=== PATIENT | male | born 1950 ===

== ENCOUNTER 2019-03-14 14:11 | Inpatient (IN) | payer MEDICARE, OTHER ==
--- NOTE | 2019-03-14 14:45 | ED ---
Abdominal Pain HPI - General Chief Complaint: Abdominal Pain Stated Complaint: bowel obstruction Time Seen by Provider: 03/14/19 14:13 Source: patient, RN notes reviewed, old records reviewed Mode of arrival: EMS Limitations: no limitations - History of Present Illness Initial Comments: This is a 60-year-old male the ER for evaluation presented for evaluation regarding abdominal pain. Patient is accepted in transfer secondary to bowel pain with found small bowel suction. Patient still having abdominal pain currently Feels nausea vomiting. MD Complaint: abdominal pain -: days(s) Location: diffuse, epigastric, suprapubic Radiation: epigastric Migration to: no migration Severity: moderate Severity scale (1-10): 4 Quality: cramping, aching Consistency: constant Improves With: nothing Worsens With: nothing Associated Symptoms: nausea - Related Data Home Medications Medication Instructions Recorded Confirmed ARIPiprazole [Abilify] 15 mg PO DAILY@59904/30/16 03/14/19 Acetaminophen [Tylenol] 500 mg PO Q4-6H PRN 04/30/16 03/14/19 Aspirin EC [Ecotrin Low Dose] 81 mg PO DAILY@59904/30/16 03/14/19 Baclofen [Lioresal] 10 mg PO HS@209904/30/16 03/14/19 Doxazosin Mesylate 2 mg PO TID@0600,1300,209904/30/16 03/14/19 Lisinopril 40 mg PO DAILY@59904/30/16 03/14/19 Magnesium Hydroxide [Milk of 1,200 mg PO Q48H PRN 04/30/16 03/14/19 Magnesia] Phenytoin Sodium Extended 200 mg PO BID@0600,209904/30/16 03/14/19 [Dilantin] Sertraline HCl [Zoloft] 100 mg PO DAILY@209904/30/16 03/14/19 Tamsulosin HCl [Flomax] 0.4 mg PO DAILY@59904/30/16 03/14/19 ALPRAZolam [Xanax] 0.25 mg PO TID@0600,1300,209903/14/19 03/14/19 Bisacodyl 10 mg RECTAL DAILY PRN 03/14/19 03/14/19 Bisacodyl [Dulcolax] 10 mg PO Q48H PRN 03/14/19 03/14/19 Fluticasone Nasal [place] [Flonase 1 spray EA NOSTRIL DAILY@0600 03/14/19 03/14/19 Nasal [place]] Furosemide [Lasix] 20 mg PO DAILY@1300 03/14/19 03/14/19 Na Phos,M-B/Na Phos,Di-Ba [Fleet 133 ml RECTAL DAILY PRN 03/14/19 03/14/19 Adult] Omeprazole 20 mg PO DAILY@0600 03/14/19 03/14/19 Potassium Chloride ER [K-Dur 10] 20 meq PO BID@0600,199903/14/19 03/14/19 Sertraline [Zoloft] 50 mg PO DAILY@2100 03/14/19 03/14/19 Vitamin B Complex/Folic Acid 0.4 mg PO DAILY@0600 03/14/19 03/14/19 [B-Complex Tablet] Previous Rx's Medication Instructions Recorded Phenytoin Sodium Extended 100 mg PO DAILY@1300 cap 05/05/16 [Dilantin] Allergies Allergy/AdvReac Type Severity Reaction Status Date / Time No Known Allergies Allergy Verified 03/14/19 14:29 Review of Systems ROS Statement: Those systems with pertinent positive or pertinent negative responses have been documented in the HPI. ROS Other: All systems not noted in ROS Statement are negative. Past Medical History Past Medical History: COPD, CVA/TIA Additional Past Medical History / Comment(s): Patient also has seizure disorder, bipolar disorder, hypertension, COPD, multiple CVAs in the past to the point where the patient is essentially bedridden at this point. History of Any Multi-Drug Resistant Organisms: None Reported Past Surgical History: No Surgical Hx Reported Past Anesthesia/Blood Transfusion Reactions: No Reported Reaction Past Psychological History: Bipolar Smoking Status: Never smoker Past Alcohol Use History: Abuse Past Drug Use History: None Reported General Exam Limitations: no limitations General appearance: alert, in no apparent distress Head exam: Present: atraumatic, normocephalic, normal inspection Eye exam: Present: normal appearance, PERRL, EOMI. Absent: scleral icterus, conjunctival injection, periorbital swelling ENT exam: Present: normal exam, mucous membranes moist Neck exam: Present: normal inspection. Absent: tenderness, meningismus, lymphadenopathy Respiratory exam: Present: normal lung sounds bilaterally. Absent: respiratory distress, wheezes, rales, rhonchi, stridor Cardiovascular Exam: Present: regular rate, normal rhythm, normal heart sounds. Absent: systolic murmur, diastolic murmur, rubs, gallop, clicks GI/Abdominal exam: Present: soft, normal bowel sounds. Absent: distended, tenderness, guarding, rebound, rigid Extremities exam: Present: normal inspection, full ROM, normal capillary refill. Absent: tenderness, pedal edema, joint swelling, calf tenderness Back exam: Present: normal inspection Neurological exam: Present: alert, oriented X3, CN II-XII intact Psychiatric exam: Present: normal affect, normal mood Skin exam: Present: warm, dry, intact, normal color. Absent: rash Course Vital Signs 03/14/19 14:22 Temperature 98.4 F Pulse Rate 84 Respiratory 18 Rate Blood Pressure 151/98 O2 Sat by Pulse 99 Oximetry - Reevaluation(s) Reevaluation #1: 03/14/19 15:36 Medical record and transfer paperwork are reviewed Medical Decision Making - Medical Decision Making 60 female the ER for reevaluation of bowel pain nausea vomiting patient be admitted for small bowel obstruction surgical evaluation Disposition Clinical Impression: Dilated bowel, Abdominal pain, Small bowel obstruction Disposition: ADMITTED IP TO THIS HOSP Condition: Good Is patient prescribed a controlled substance at d/c from ED?: No Referrals: Kiran Travis MD [Primary Care Provider] - 1-2 days
[2019-03-14] MEDS ORDERED: SODIUM CHLORIDE 0.9% 1,000 ML IV ONE (15:34)
[2019-03-14] MEDS ORDERED: ONDANSETRON 4 MG/2 ML VIAL IVP STA (15:35)
[2019-03-14] MEDS ORDERED: PANTOPRAZOLE 40 MG/10 ML VIAL IVP STA (15:35)
[2019-03-14] MEDS ORDERED: MORPHINE SULFATE 4 MG/ML SYRINGE IVP STA (15:35)
[2019-03-14] MEDS ORDERED: MORPHINE SULFATE 4 MG/ML SYRINGE IVP PRN (15:35)
[2019-03-14 16:50] VITALS: BMI 34.9
--- NOTE | 2019-03-14 19:51 | XR ---
EXAMINATION TYPE: XR chest 1V portable DATE OF EXAM: 03/14/2019 CLINICAL HISTORY: Difficulty breathing and CHF progress study. TECHNIQUE: Single AP portable upright view of the chest is obtained. COMPARISON: Chest x-ray from May 01, 2016 FINDINGS: There are low lung volumes with bibasilar linear scarring and/or atelectasis. Cardiomegaly is redemonstrated. No new focal airspace opacity, pleural effusion, or pneumothorax. Osseous structu res are demineralized. IMPRESSION: Overall stable findings, cardiomegaly with low lung volumes and patchy bibasilar linear scarring and/or atelectasis are all redemonstrated.
[2019-03-14] MEDS: SERTRALINE 50 MG TAB PO SCH (19:58)
[2019-03-14] MEDS: DOXAZOSIN 2 MG TAB PO SCH (19:59)
[2019-03-14] MEDS: PHENYTOIN SODIUM EXTENDED 100 MG CAP PO SCH (19:59)
[2019-03-14] MEDS: BACLOFEN 10 MG TAB PO SCH (19:59)
[2019-03-14] MEDS: SODIUM CHLORIDE 0.9% 1,000 ML IV SCH (20:03)
--- NOTE | 2019-03-14 20:41 | HP ---
HISTORY AND PHYSICAL DATE OF SERVICE: 03/14/2019 CHIEF COMPLAINT: Abdominal pain and distention. HISTORY OF PRESENT ILLNESS: This 68-year-old gentleman with a past medical history of multiple medical problems including COPD, CVA, TIA, seizure disorder, bipolar, hypertension, COPD, multiple CVAs in the past being followed by Dr. Kiran Travis in the outpatient setting, is a resident of [facility] in [place]. The patient presented to [facility] with complaints of abdominal distention and pain and evaluation showed evidence of bowel obstruction with some suspicion of volvulus. The patient was referred to [facility] and admitted for further evaluation and treatment. There is no history of fever, rigors. No headache, loss of consciousness, seizures. Patient also had some feeling of nausea also and cramping as well. PAST MEDICAL HISTORY: History of CVA, TIA, COPD, multiple CVAs, hypertension, COPD. MEDICATIONS: Home medications are: 1. Lioresal 10 mg q.h.s. 2. Tylenol 500 mg q.4h p.r.n. 3. Milk of magnesia. 4. Fleet's enema 133 rectally daily p.r.n. 5. Dulcolax 10 mg Q48 p.r.n. 6. Bisacodyl 10 mg daily p.r.n. 7. K-Dur 20 mEq p.o. b.i.d. 8. Doxylate 2 mg p.o. t.i.d. 9. Xanax 2.5 mg t.i.d. 10.Dilantin 200 mg p.o. b.i.d. 11.Zoloft 50 mg p.o. daily. 12.Zoloft 100 mg p.o. daily. 13.Dilantin 100 mg p.o. daily. 14.Omeprazole 20 mg p.o. daily. 15.Lisinopril 40 mg p.o. daily. 16.Lasix 20 mg p.o. daily. 17.Flonase 1 spray daily. 18.Multivitamin daily. 19.Flomax 0.4 daily. 20.Aspirin 81 mg p.o. daily. 21.Abilify 50 mg p.o. daily. ALLERGIES: None. FAMILY HISTORY: No history of any heart disease or strokes in the family. SOCIAL HISTORY: History of alcohol abuse, no history of smoking. REVIEW OF SYSTEMS: ENT diminished vision. Diminished hearing. CARDIOVASCULAR: No angina. Otherwise as mentioned earlier. RESPIRATORY: As mentioned earlier. GI no nausea or vomiting. no dysuria. CENTRAL NERVOUS SYSTEM: No numbness, weakness. ALLERGY/IMMUNOLOGY: No asthma or hayfever. MUSCULOSKELETAL as mentioned earlier. HEMATOLOGY/ONCOLOGY: No history of anemia. ENDOCRINE: No history of diabetes or hypothyroidism. CONSTITUTIONAL: As mentioned earlier. DERMATOLOGY: Negative. RHEUMATOLOGY: Negative. PSYCHIATRY as mentioned earlier. PHYSICAL EXAMINATION: Alert and oriented times three. Pulse is 84. Blood pressure 150/90, respiration 18, temperature 98.4, pulse ox 98% on room air. HEENT: Conjunctivae normal. NECK: No jugular venous distention. CARDIOVASCULAR: S1, S2 muffled. RESPIRATORY: Breath sounds diminished in the bases. A few scattered rhonchi and crackles. ABDOMEN: Soft. Mild diffuse distention present. Mild diffuse tenderness. No guarding. No rigidity. No mass palpable. Bowel sounds diminished. No ascites. No dullness in the flank mostly present on percussion. LEGS: No edema. No swelling. NERVOUS SYSTEM as mentioned earlier. Moves all 4 limbs. No focal motor or sensory deficits. Lymphatics: No lymph nodes palpable in the neck, axillae or groin. SKIN: No ulcers, no rashes or bleeding. JOINTS: No active deforming arthropathy. LABS: Reviewed. CT scan report reviewed. ASSESSMENT: 1. Abdominal distention, possible bowel obstruction with possible rule out volvulus. 2. Chronic obstructive pulmonary disease history. 3. History of multiple cerebrovascular accidents. 4. History of seizure disorder. 5. History of bipolar. 6. Hypertension. 7. Remote history of ETOH. RECOMMENDATIONS AND DISCUSSION: In this 68-year-old gentleman who presented with multiple complex medical issues, we will monitor the patient closely, continue the current medications, management and symptomatic treatment. I recommend resume the home medication including antihypertensive medications and Lasix. Keep the patient n.p.o. except medications. Surgical evaluation. Guarded prognosis because of the multiple complex medical issues. DVT prophylaxis, incentive spirometry. The patient has multiple medical issues, but currently patient is medically stable and patient will be cleared for surgery in case the surgery proceeded to decide so. A copy of this dictation being forwarded to Dr. Kiran Travis who is the primary physician. MMODL / IJN: [id number] /
[2019-03-14] MEDS ORDERED: SERTRALINE 100 MG TAB PO SCH (21:00)
[2019-03-15] MEDS: PHENYTOIN SODIUM EXTENDED 100 MG CAP PO SCH ×3 (05:17→22:11)
[2019-03-15] MEDS: DOXAZOSIN 2 MG TAB PO SCH ×3 (05:17→22:11)
[2019-03-15] MEDS: ARIPiprazole 15 MG TAB PO SCH (05:18)
[2019-03-15] MEDS: FLUTICASONE 50MCG/SPRAY NASAL 16GM EA NOSTRIL SCH (05:18)
[2019-03-15] MEDS: TAMSULOSIN 0.4 MG CAP.ER.24H PO SCH (05:19)
[2019-03-15] MEDS: LISINOPRIL 20 MG TAB PO SCH (05:19)
[2019-03-15] MEDS: PANTOPRAZOLE 40 MG/10 ML VIAL IVP SCH (07:50)
[2019-03-15] MEDS ORDERED: ENOXAPARIN 40 MG/0.4 ML SYRINGE SQ SCH (09:00)
[2019-03-15 11:20] LABS: Basophils % (A) 1 %; Eosinophils # (A) 0.1 k/uL (0-0.7); Eosinophils % (A) 3 %; HCT 39.6 % (39.0-53.0); HGB 12.6 gm/dL (13.0-17.5); Lymphocytes # (A) 1.2 k/uL (1.0-4.8); Lymphocytes % (A) 28 %; MCH 29.9 pg (25.0-35.0); MCHC 31.8 g/dL (31.0-37.0); MCV 93.8 fL (80.0-100.0); Mean Platelet Volume 6.9; Monocytes # (A) 0.4 k/uL (0-1.0); Monocytes % (A) 9 %; Neutrophils # (A) 2.4 k/uL (1.3-7.7); Neutrophils % (A) 57 %; Platelet Count 239 k/uL (150-450); RBC 4.22 m/uL (4.30-5.90); RDW 14.2 % (11.5-15.5); WBC 4.2 k/uL (3.8-10.6)
[2019-03-15 11:23] LABS: African American GFR (CKD) >90 (>60 ml/min/1.73 sqM); Anion Gap 9 mmol/L; Blood Urea Nitrogen 13 mg/dL (9-20); Calcium 8.4 mg/dL (8.4-10.2); Carbon Dioxide 21 mmol/L (22-30); Chloride 111 mmol/L (98-107); Glucose 71 mg/dL (74-99); Non-African American GFR(CKD) >90 (>60 ml/min/1.73 sqM); Potassium 3.4 mmol/L (3.5-5.1); Sodium 141 mmol/L (137-145)
--- NOTE | 2019-03-15 12:22 | XR ---
EXAMINATION TYPE: XR abdomen 2V DATE OF EXAM: 03/15/2019 12:14 PM CLINICAL HISTORY: Abdominal pain and sigmoid folds are less reported on an outside CT. TECHNIQUE: Upright and supine images of the abdomen were obtained. COMPARISON: None. FINDINGS: There is marked dilatation of the colon, appearing as the sigmoid colon measuring up to 24 cm placing this patient at risk for perforation. There is folding of the colon with apex oriented tow ards the right upper quadrant again most compatible with sigmoid volvulus as reported on an outside C T. Air is seen within the dilated remainder of the colon as well as mottled stool in the right hemico tino and transverse colon. Moderate degenerative changes of the spine. Lung bases are suboptimally vie wed. Pneumoperitoneum is suboptimally evaluated however not grossly present on the upright exam. IMPRESSION: Folding of the sigmoid colon with marked dilatation showing up to 24 cm. [place] is oriented to the right upper quadrant and findings are most radiographically compatible with sigmoid volvulus, concordant with the reported outside CT. Degree of dilatation makes this patient at risk for perfora tion and therefore surgical consultation is recommended and barium enema is not advised.
[2019-03-15] MEDS: SODIUM CHLORIDE 0.9% 1,000 ML IV SCH (12:43)
--- NOTE | 2019-03-15 13:23 | P.GSCN ---
History of Present Illness Consult date: 03/15/19 Reason for Consult: obstruction Requesting physician: Beto Riley History of present illness: CHIEF COMPLAINT: obstruction HISTORY OF PRESENT ILLNESS: 68-year-old male who is transferred to [facility] from [facility]. patient reports he was initially sent to the hospital secondary to back pain. He also reports having some nausea and vomiting yesterday which has resolved. Computed tomography scan completed at outside facility reveals colonic dilatation and copious stool in association with sigmoid volvulus. Patient examined at the bedside. Patient is not complaining of any abdominal pain at this time. He denies nausea or vomiting. PAST MEDICAL HISTORY: See list. PAST SURGICAL HISTORY: See list. SOCIAL HISTORY: No illicit drug use. REVIEW OF SYSTEMS: CONSTITUTIONAL: Denies fever or chills. HEENT: Denies blurred vision, vision changes, or eye pain. Denies hemoptysis CARDIOVASCULAR: Denies chest pain or pressure. RESPIRATORY: No shortness of breath. GASTROINTESTINAL: Refer to HPI for pertinent findings HEMATOLOGIC: Denies bleeding disorders. GENITOURINARY: Denies any blood in urine. SKIN: Denies pruitis. Denies rash. PHYSICAL EXAM: VITAL SIGNS: Reviewed. GENERAL: Well-developed in no acute distress. HEENT: No sclera icterus. Extraocular movements grossly intact. Moist buccal mucosa. Head is atraumatic, normocephalic. ABDOMEN: Obese. Nontender. Firmness to palpation on left side of abdomen. Right side soft. NEUROLOGIC: Alert and oriented. Cranial nerves II through XII grossly intact. LABORATORY DATA: laboratory data complete this morning reveals white count 4.2. Hemoglobin 12.6. Sodium 141. Potassium 3.4. BUN 13. Creatinine 0.67. Lactic acid 0.7. IMAGING: Two-view abdominal x-ray completed this morning reveals full denies the sigmoid colon with marked dilatation showing up to 24 cm. [place] is oriented to the right upper quadrant and findings are most compatible with sigmoid volvulus. ASSESSMENT: 1. Sigmoid volvulus PLAN: NPO. Increase IV fluids to 100cc/hr. Monitor labs. Patient to undergo sigmoid colectomy with possible colostomy today with Dr. Martinez. Patient medically cleared for surgery by Dr. Davis yesterday per his dictation Nurse practitioner note has been reviewed by physician. Signing provider agrees with the documented findings, assessment, and plan of care. Past Medical History Past Medical History: COPD, CVA/TIA Additional Past Medical History / Comment(s): Patient also has seizure disorder, bipolar disorder, hypertension, COPD, multiple CVAs in the past to the point where the patient is essentially bedridden at this point. History of Any Multi-Drug Resistant Organisms: None Reported Past Surgical History: No Surgical Hx Reported Past Anesthesia/Blood Transfusion Reactions: No Reported Reaction Past Psychological History: Bipolar Smoking Status: Never smoker Past Alcohol Use History: Abuse Additional Past Alcohol Use History / Comment(s): pt states he used to be an alcoholic and his last drink was years ago Past Drug Use History: None Reported Medications and Allergies Home Medications Medication Instructions Recorded Confirmed Type ARIPiprazole [Abilify] 15 mg PO DAILY@59904/30/16 03/14/19 History Acetaminophen [Tylenol] 500 mg PO Q4-6H PRN 04/30/16 03/14/19 History Aspirin EC [Ecotrin Low Dose] 81 mg PO DAILY@59904/30/16 03/14/19 History Baclofen [Lioresal] 10 mg PO HS@209904/30/16 03/14/19 History Doxazosin Mesylate 2 mg PO TID@0600,1300,209904/30/16 03/14/19 History Lisinopril 40 mg PO DAILY@59904/30/16 03/14/19 History Magnesium Hydroxide [Milk of 1,200 mg PO Q48H PRN 04/30/16 03/14/19 History Magnesia] Phenytoin Sodium Extended 200 mg PO BID@0600,209904/30/16 03/14/19 History [Dilantin] Sertraline HCl [Zoloft] 100 mg PO DAILY@209904/30/16 03/14/19 History Tamsulosin HCl [Flomax] 0.4 mg PO DAILY@0600 04/30/16 03/14/19 History Phenytoin Sodium Extended 100 mg PO DAILY@1300 cap 05/05/16 03/14/19 Rx [Dilantin] ALPRAZolam [Xanax] 0.25 mg PO TID@0600,1300,209903/14/19 03/14/19 History Bisacodyl 10 mg RECTAL DAILY PRN 03/14/19 03/14/19 History Bisacodyl [Dulcolax] 10 mg PO Q48H PRN 03/14/19 03/14/19 History Fluticasone Nasal [place] [Flonase 1 spray EA NOSTRIL DAILY@0600 03/14/19 03/14/19 History Nasal [place]] Furosemide [Lasix] 20 mg PO DAILY@1300 03/14/19 03/14/19 History Na Phos,M-B/Na Phos,Di-Ba [Fleet 133 ml RECTAL DAILY PRN 03/14/19 03/14/19 History Adult] Omeprazole 20 mg PO DAILY@0600 03/14/19 03/14/19 History Potassium Chloride ER [K-Dur 10] 20 meq PO BID@0600,199903/14/19 03/14/19 History Sertraline [Zoloft] 50 mg PO DAILY@2100 03/14/19 03/14/19 History Vitamin B Complex/Folic Acid 0.4 mg PO DAILY@0600 03/14/19 03/14/19 History [B-Complex Tablet] Allergies Allergy/AdvReac Type Severity Reaction Status Date / Time No Known Allergies Allergy Verified 03/14/19 14:29 Surgical - Exam Vital Signs Temp Pulse Resp BP Pulse Ox 98.4 F 84 18 151/98 99 03/14/19 14:22 03/14/19 14:22 03/14/19 14:22 03/14/19 14:22 03/14/19 14:22 Results - Labs 03/15/19 10:38 03/15/19 10:38 Abnormal Lab Results - Last 24 Hours (Table) 03/15/19 03/15/19 Range/Units 10:38 10:38 RBC 4.22 L (4.30-5.90) m/uL Hgb 12.6 L (13.0-17.5) gm/dL Potassium 3.4 L (3.5-5.1) mmol/L Chloride 111 H (98-107) mmol/L Carbon Dioxide 21 L (22-30) mmol/L Glucose 71 L (74-99) mg/dL Diabetes panel 03/15/19 Range/Units 10:38 Sodium 141 (137-145) mmol/L Potassium 3.4 L (3.5-5.1) mmol/L Chloride 111 H (98-107) mmol/L Carbon Dioxide 21 L (22-30) mmol/L BUN 13 (9-20) mg/dL Creatinine 0.67 (0.66-1.25) mg/dL Glucose 71 L (74-99) mg/dL Calcium 8.4 (8.4-10.2) mg/dL Calcium panel 03/15/19 Range/Units 10:38 Calcium 8.4 (8.4-10.2) mg/dL Pituitary panel 03/15/19 Range/Units 10:38 Sodium 141 (137-145) mmol/L Potassium 3.4 L (3.5-5.1) mmol/L Chloride 111 H (98-107) mmol/L Carbon Dioxide 21 L (22-30) mmol/L BUN 13 (9-20) mg/dL Creatinine 0.67 (0.66-1.25) mg/dL Glucose 71 L (74-99) mg/dL Calcium 8.4 (8.4-10.2) mg/dL Adrenal panel 03/15/19 Range/Units 10:38 Sodium 141 (137-145) mmol/L Potassium 3.4 L (3.5-5.1) mmol/L Chloride 111 H (98-107) mmol/L Carbon Dioxide 21 L (22-30) mmol/L BUN 13 (9-20) mg/dL Creatinine 0.67 (0.66-1.25) mg/dL Glucose 71 L (74-99) mg/dL Calcium 8.4 (8.4-10.2) mg/dL
[2019-03-15] MEDS: FUROSEMIDE 20 MG TAB PO SCH (14:03)
[2019-03-15] MEDS: 0.9% NACL WITH KCL 40 MEQ/L 1,000 ML IV SCH (17:22)
[2019-03-15] MEDS ORDERED: IOPAMIDOL CONTRAST (ORAL USE) VIAL PO PRN (17:44)
--- NOTE | 2019-03-15 19:03 | PN ---
PROGRESS NOTE DATE OF SERVICE: 03/15/2019. This 68-year-old gentleman who was admitted with abdominal distention had suspected bowel obstruction. Patient had a CT scan of the abdomen elsewhere. The patient was complaining of abdominal pain, also. Abdominal x-ray has been done. Surgery has seen the patient and recommended sigmoid colectomy for possible sigmoid volvulus. The patient is being closely monitored. Past medical history reviewed. REVIEW OF SYSTEMS: CARDIOVASCULAR SYSTEM: No angina, palpitations. RESPIRATORY SYSTEM: As mentioned earlier. GI: As mentioned earlier. : No dysuria or retention. NERVOUS SYSTEM: No numbness, weakness. CURRENT MEDICATIONS: Reviewed. They include: 1. Abilify 15 mg p.o. daily. 2. Lioresal 10 mg at bedtime. 3. Cardura 2 mg p.o. daily. 4. Lovenox 40 mg subcutaneously daily. 5. Flonase. 6. Lasix 20 mg daily. 7. Dilaudid 0.5 mg q.3 p.r.n. 8. Zestril 40 mg p.o. daily. 9. Zofran 4 mg q.6 p.r.n. 10.Protonix 40 mg IV daily. 11.Dilantin 200 mg p.o. b.i.d. 12.Zoloft 150 mg p.o. daily. 13.Flomax 0.4 daily. PHYSICAL EXAMINATION: Patient alert and oriented x3. Pulse 85, blood pressure 150/90, respiration 16, temperature 98.2, pulse ox 96% on room air. HEENT: Conjunctivae normal NECK: No jugular venous distention. No carotid bruit. No lymph node enlargement. CARDIOVASCULAR SYSTEM: S1, S2 muffled. No S3. No S4. RESPIRATORY SYSTEM: Breath sounds diminished at the bases. No rhonchi. No crackles. ABDOMEN: Soft. Mild diffuse distention. Mild diffuse tenderness also present. Bowel sounds diminished. LEGS: No edema. No swelling. NERVOUS SYSTEM: No focal deficit. LABS: WBC 4.2, hemoglobin 12.6, sodium 140, potassium 3.4. ASSESSMENT: 1. Abdominal pain with acute bowel obstruction secondary to sigmoid volvulus. 2. Hypokalemia. 3. Chronic obstructive pulmonary disease history. 4. History of multiple cerebrovascular accidents. 5. History of seizure disorder. 6. History of bipolar. 7. Hypertension. 8. Remote history of ETOH. RECOMMENDATIONS AND DISCUSSION: I recommend to continue current medications, continue with the monitoring, symptomatic treatment. Will optimize the bronchodilator treatment. Supplement potassium. DVT prophylaxis. Incentive spirometry. Pain medications. Follow closely with Surgery. Dr. Martinez is planning surgery probably tomorrow. Further recommendations to follow. LUDWIGL / CARISAN: [id number] / MTDD
[2019-03-15] MEDS: BACLOFEN 10 MG TAB PO SCH (22:10)
[2019-03-15] MEDS: SERTRALINE 50 MG TAB PO SCH (22:11)
[2019-03-15] MEDS: HEPARIN SODIUM,PORCINE 5,000 UNIT/ML 1 ML VIAL SQ SCH (22:13)
--- NOTE | 2019-03-15 23:43 | CT ---
EXAMINATION TYPE: CT abdomen pelvis wo con DATE OF EXAM: 03/15/2019 COMPARISON: Radiographs 03/15/2019 HISTORY: Sigmoid volvulus, colon obstruction. CT DLP: 1296 mGycm. Automated exposure control for dose reduction was used. TECHNIQUE: Helical acquisition of images was performed from the lung bases through the pelvis. FINDINGS: LUNG BASES: No acute findings. There is mild cardiomegaly and prominent left and right coronary calci fications. 5 cm hiatal hernia noted. LIVER/GB: No significant abnormality is appreciated. PANCREAS: No significant abnormality is seen. SPLEEN: No significant abnormality is seen. ADRENALS: No significant abnormality is seen. KIDNEYS: No significant abnormality is seen. FREE AIR: No free air is visualized; no fluid. RETROPERITONEAL ADENOPATHY: None visualized REPRODUCTIVE ORGANS: No significant abnormality is seen URINARY BLADDER: No significant abnormality is seen. PELVIC ADENOPATHY: None visualized. OSSEOUS STRUCTURES: No significant abnormality is seen. BOWEL: There is redemonstration of the sigmoid volvulus described earlier today. The severely twisted distal sigmoid colon is located at the level of the sacral promontory. Proximal to the twisted distal sigmoid is the colonic obstruction. IMPRESSION: POSITIVE FOR SIGMOID VOLVULUS.
[2019-03-16] MEDS: FLUTICASONE 50MCG/SPRAY NASAL 16GM EA NOSTRIL SCH (07:12)
[2019-03-16] MEDS: ARIPiprazole 15 MG TAB PO SCH (07:12)
[2019-03-16] MEDS: PHENYTOIN SODIUM EXTENDED 100 MG CAP PO SCH ×3 (07:12→22:06)
[2019-03-16] MEDS: LISINOPRIL 20 MG TAB PO SCH (07:12)
[2019-03-16] MEDS: DOXAZOSIN 2 MG TAB PO SCH ×3 (07:13→22:06)
[2019-03-16] MEDS: 0.9% NACL WITH KCL 40 MEQ/L 1,000 ML IV SCH ×2 (07:13→22:05)
[2019-03-16] MEDS: TAMSULOSIN 0.4 MG CAP.ER.24H PO SCH (07:29)
[2019-03-16] MEDS: PANTOPRAZOLE 40 MG/10 ML VIAL IVP SCH (07:42)
[2019-03-16] MEDS: HEPARIN SODIUM,PORCINE 5,000 UNIT/ML 1 ML VIAL SQ SCH ×2 (07:43→09:42)
[2019-03-16] MEDS ORDERED: IV FLUID CONTINUATION 1,000 ML IV ONE (09:03)
[2019-03-16] MEDS ORDERED: PHENYLEPHRINE-0.9% NACL SYG 1 MG/10 ML SYRINGE ONE (10:01)
[2019-03-16] MEDS ORDERED: MIDAZOLAM 2 MG/2 ML VIAL ONE (10:01)
[2019-03-16] MEDS ORDERED: GLYCOPYRROLATE 0.2 MG/ML 2 ML VIAL ONE (10:01)
[2019-03-16] MEDS ORDERED: HYDROmorphone (PF) 1 MG/ML ONE (10:01)
[2019-03-16] MEDS ORDERED: ROCURONIUM BROMIDE 10 MG/ML 10 ML VIAL IV ONE (10:01)
[2019-03-16] MEDS ORDERED: ePHEDrine SULFATE/0.9% NACL/PF 50 MG/5 ML SYRINGE IV ONE (10:01)
[2019-03-16] MEDS ORDERED: LIDOCAINE 1% INJ 10MG/ML (20 ML MDV) ONE (10:01)
[2019-03-16] MEDS ORDERED: NEOSTIGMINE 1 MG/ML 10 ML VIAL ONE (10:01)
[2019-03-16] MEDS ORDERED: fentaNYL (PF) 50 MCG/ML 2 ML AMP ONE (10:01)
[2019-03-16] MEDS ORDERED: PROPOFOL 10 MG/ML 20 ML VIAL IV ONE (10:01)
[2019-03-16] MEDS ORDERED: LACTATED RINGERS 1,000 ML IV ONE ×2 (11:28→12:37)
[2019-03-16] MEDS ORDERED: HYDROmorphone 0.5 MG/0.5 ML SYRINGE IM PRN (11:37)
--- NOTE | 2019-03-16 11:46 | P.OP ---
Date of Procedure: 03/16/19 Preoperative Diagnosis: Colonic obstruction Sigmoid volvulus Postoperative Diagnosis: Colonic obstruction Sigmoid volvulus Procedure(s) Performed: Sigmoid colectomy with end colostomy Anesthesia: BOB Surgeon: Thee Martinez Pathology: other (Sigmoid colon) Condition: stable Disposition: PACU Description of Procedure: The patient's placed on the operating table in supine position. He received general anesthesia. The patient's abdomen was prepped and draped usual sterile fashion. The abdomen was entered through midline incision. Upon entering the abdomen the colon was massively dilated. The transverse colon appeared to be approximately 20 cm in diameter. The patient had an obvious obstruction due to sigmoid volvulus. The colon was decompressed by making enterotomy and placing the suction catheter in the colon. The enterotomy was closed using the TA stapler. Next the proximal colon was transected with the GI stapler and then the sigmoid volvulus was reduced. The mesentery the bowel was divided with the Enseal device. The dissection was taken down level of the rectum. In the re ctum was transected with the GI stapler. The rectal stump was oversewn with 3-0 Prolene suture. The specimen was sent to pathology. A suitable spot for the colostomy is found in the left upper quadrant. The abdomen was irrigated. The antrum of the colon was brought up through the colostomy site. The fascia was closed with looped #1 PDS suture. Skin was closed althea. The colostomy then matured with 3-0 Vicryl. Patient top she will was sent to recovery in stable condition.
[2019-03-16] MEDS: HYDROmorphone 0.5 MG/0.5 ML SYRINGE IVP ONE ×4 (11:54→12:13)
[2019-03-16] MEDS: METOCLOPRAMIDE 5 MG/ML 2 ML VIAL IVP SCH ×2 (13:28→17:01)
[2019-03-16] MEDS: FUROSEMIDE 20 MG TAB PO SCH (13:33)
[2019-03-16 14:35] LABS: Basophils % (A) 0 %; Eosinophils % (A) 0 %; HCT 39.6 % (39.0-53.0); HGB 12.6 gm/dL (13.0-17.5); Lymphocytes # (A) 0.5 k/uL (1.0-4.8); Lymphocytes % (A) 7 %; MCHC 31.9 g/dL (31.0-37.0); Monocytes # (A) 0.5 k/uL (0-1.0); Monocytes % (A) 7 %; Neutrophils # (A) 6.7 k/uL (1.3-7.7); Neutrophils % (A) 85 %; Platelet Count 217 k/uL (150-450); RBC 4.22 m/uL (4.30-5.90); WBC 7.9 k/uL (3.8-10.6)
[2019-03-16 14:40] LABS: African American GFR (CKD) >90 (>60 ml/min/1.73 sqM); Anion Gap 11 mmol/L; Blood Urea Nitrogen 8 mg/dL (9-20); Calcium 8.1 mg/dL (8.4-10.2); Carbon Dioxide 20 mmol/L (22-30); Chloride 108 mmol/L (98-107); Glucose 106 mg/dL (74-99); Non-African American GFR(CKD) >90 (>60 ml/min/1.73 sqM); Potassium 3.8 mmol/L (3.5-5.1); Sodium 139 mmol/L (137-145)
--- NOTE | 2019-03-16 16:40 | PN ---
PROGRESS NOTE DATE OF SERVICE: 03/16/2019. This 68-year-old gentleman who was admitted with abdominal pain with acute bowel obstruction, volvulus, underwent sigmoid colectomy and end-colostomy and by Dr. Martinez. No chest pain. No palpitations. No fever. EXAM: Patient drowsy after surgery. Pulse is 80. Blood pressure 143/87, respirations 16, temperature 99.9, pulse ox 98% on 6 L. HEENT: Conjunctivae normal. NECK: No JVD. CARDIOVASCULAR: S1, S2 muffled. RESPIRATORY: Breath sounds diminished in the bases. A few scattered rhonchi. No crackles. ABDOMEN is soft, status post surgery. LEGS are no edema. No swelling. CENTRAL NERVOUS SYSTEM: No focal deficits. LAB STUDIES: WBC 7.2, hemoglobin 12.2, sodium 139, potassium 3.8. ASSESSMENT: 1. Abdominal pain with bowel obstruction secondary to volvulus, status post sigmoid colectomy and end-colostomy. 2. Hypokalemia. 3. Chronic obstructive pulmonary disease. 4. History of multiple cerebrovascular accidents. 5. History of seizure disorder. 6. History of bipolar. 7. History of hypertension. 8. Remote history of EtOH. RECOMMENDATIONS AND DISCUSSION: Recommend to continue current medications, management and symptomatic treatment. Otherwise DVT prophylaxis. Incentive spirometry. Resume the home medications. Closely follow with surgery. Further recommendations to follow. MMODL / IJN: [id number] /
[2019-03-16] MEDS: ONDANSETRON 4 MG/2 ML VIAL IVP PRN (20:28)
[2019-03-16] MEDS: HYDROmorphone 0.5 MG/0.5 ML SYRINGE IVP PRN (20:28)
[2019-03-16] MEDS: BACLOFEN 10 MG TAB PO SCH (22:05)
[2019-03-16] MEDS: SERTRALINE 50 MG TAB PO SCH (22:05)
[2019-03-17] MEDS: METOCLOPRAMIDE 5 MG/ML 2 ML VIAL IVP SCH ×5 (00:02→22:55)
[2019-03-17] MEDS: ONDANSETRON 4 MG/2 ML VIAL IVP PRN (02:39)
[2019-03-17] MEDS: HYDROmorphone 0.5 MG/0.5 ML SYRINGE IVP PRN ×3 (02:39→16:11)
[2019-03-17] MEDS: ARIPiprazole 15 MG TAB PO SCH (05:56)
[2019-03-17] MEDS: TAMSULOSIN 0.4 MG CAP.ER.24H PO SCH (05:56)
[2019-03-17] MEDS: LISINOPRIL 20 MG TAB PO SCH (05:56)
[2019-03-17] MEDS: DOXAZOSIN 2 MG TAB PO SCH ×3 (05:56→20:23)
[2019-03-17] MEDS: FLUTICASONE 50MCG/SPRAY NASAL 16GM EA NOSTRIL SCH (05:56)
[2019-03-17] MEDS: PHENYTOIN SODIUM EXTENDED 100 MG CAP PO SCH ×3 (05:57→20:23)
[2019-03-17] MEDS: HEPARIN SODIUM,PORCINE 5,000 UNIT/ML 1 ML VIAL SQ SCH ×2 (07:12→20:23)
[2019-03-17] MEDS: PANTOPRAZOLE 40 MG/10 ML VIAL IVP SCH (07:12)
[2019-03-17 10:01] LABS: Basophils % (A) 0 %; Eosinophils % (A) 0 %; HCT 41.3 % (39.0-53.0); HGB 13.5 gm/dL (13.0-17.5); Lymphocytes # (A) 0.6 k/uL (1.0-4.8); Lymphocytes % (A) 8 %; MCH 30.3 pg (25.0-35.0); MCHC 32.7 g/dL (31.0-37.0); MCV 92.7 fL (80.0-100.0); Mean Platelet Volume 7.1; Monocytes # (A) 0.5 k/uL (0-1.0); Monocytes % (A) 7 %; Neutrophils # (A) 6.8 k/uL (1.3-7.7); Neutrophils % (A) 84 %; Platelet Count 209 k/uL (150-450); RBC 4.45 m/uL (4.30-5.90); WBC 8.1 k/uL (3.8-10.6)
[2019-03-17] MEDS ORDERED: SODIUM CHLORIDE 0.9% 1,000 ML IV ONE (10:02)
[2019-03-17] MEDS: 0.9% NACL WITH KCL 40 MEQ/L 1,000 ML IV SCH ×2 (10:08→20:24)
[2019-03-17 10:12] LABS: African American GFR (CKD) >90 (>60 ml/min/1.73 sqM); Anion Gap 10 mmol/L; Blood Urea Nitrogen 11 mg/dL (9-20); Calcium 8.2 mg/dL (8.4-10.2); Carbon Dioxide 23 mmol/L (22-30); Chloride 103 mmol/L (98-107); Glucose 269 mg/dL (74-99); Non-African American GFR(CKD) >90 (>60 ml/min/1.73 sqM); Potassium 3.6 mmol/L (3.5-5.1); Sodium 136 mmol/L (137-145)
[2019-03-17] MEDS: FUROSEMIDE 20 MG TAB PO SCH (12:55)
--- NOTE | 2019-03-17 13:16 | P.PN ---
Subjective Progress Note Date: 03/17/19 CHIEF COMPLAINT: obstruction HISTORY OF PRESENT ILLNESS: Patient is status post sigmoid colectomy with end colostomy secondary to sigmoid volvulus. POD #1. Patient reports his abdominal pain is tolerable at this time. Denies nausea or vomiting. Tolerating clear l iquid diet. vital signs stable. He is afebrile. Hester catheter noted with dark herbert urine. WBC 8.1. Hemoglobin 13.5. PHYSICAL EXAM: VITAL SIGNS: Reviewed. GENERAL: Well-developed in no acute distress. HEENT: No sclera icterus. Extraocular movements grossly intact. Moist buccal mucosa. Head is atraumatic, normocephalic. ABDOMEN: Obese. Nontender. Dressing clean dry and intact. Ostomy noted without stool or gas. Stoma viable. NEUROLOGIC: Alert and oriented. Cranial nerves II through XII grossly intact. ASSESSMENT: 1. Sigmoid volvulus, s/p status post sigmoid colectomy with end colostomy PLAN: 1. Continue clear liquid diet. Do not advance at this time. 2. Await bowel function 3. 1 L fluid bolus secondary to dark herbert urine. Continue maintenance IV fluids at 75 mL an hour 4. Continue Hester catheter today. Anticipate removal tomorrow morning 5. Incentive spirometry 6. Activity as tolerated. PT and OT on consult 7. Consult ostomy nurse for education Nurse practitioner note has been reviewed by physician. Signing provider agrees with the documented findings, assessment, and plan of care. Objective - Vital Signs Vital signs: Vital Signs Temp 97.7 F 03/17/19 06:00 Pulse 94 03/17/19 06:00 Resp 18 03/17/19 08:00 BP 169/84 03/17/19 06:00 Pulse Ox 93 L 03/17/19 06:00 Intake & Output 03/16/19 03/17/19 03/17/19 18:59 06:59 18:59 Intake Total 1900 0 Output Total 1625 1800 Balance 275 -1800 Intake: IV 1900 Oral 0 Output: Urine 1575 1700 Emesis 100 Estimated Blood Loss 50 Other: Voiding Method Indwelling Catheter Indwelling Catheter Indwelling Catheter # Voids 2 # Bowel Movements 0 # Emeses 1 - Labs CBC & Chem 7: 03/17/19 09:21 03/17/19 09:21 Labs: Abnormal Lab Results - Last 24 Hours (Table) 03/16/19 03/16/19 03/17/19 Range/Units 14:07 14:07 09:21 RBC 4.22 L (4.30-5.90) m/uL Hgb 12.6 L (13.0-17.5) gm/dL Lymphocytes # 0.5 L 0.6 L (1.0-4.8) k/uL Sodium (137-145) mmol/L Chloride 108 H (98-107) mmol/L Carbon Dioxide 20 L (22-30) mmol/L BUN 8 L (9-20) mg/dL Creatinine 0.59 L (0.66-1.25) mg/dL Glucose 106 H (74-99) mg/dL Calcium 8.1 L (8.4-10.2) mg/dL 03/17/19 Range/Units 09:21 RBC (4.30-5.90) m/uL Hgb (13.0-17.5) gm/dL Lymphocytes # (1.0-4.8) k/uL Sodium 136 L (137-145) mmol/L Chloride (98-107) mmol/L Carbon Dioxide (22-30) mmol/L BUN (9-20) mg/dL Creatinine 0.65 L (0.66-1.25) mg/dL Glucose 269 H (74-99) mg/dL Calcium 8.2 L (8.4-10.2) mg/dL
--- NOTE | 2019-03-17 18:49 | PN ---
PROGRESS NOTE DATE OF SERVICE: 03/17/2019 This 68-year-old gentleman who was admitted with abdominal pain and bowel obstruction underwent sigmoid colectomy and end colostomy for volvulus. The patient is closely monitored. No chest pain. No palpitations. No fever. EXAM: Alert and oriented x2. Pulse is 94, blood pressure 116/84, respiration 18, temperature 97.7, pulse ox 93% on room air. HEENT: Conjunctivae normal. NECK: No JVD. CARDIOVASCULAR: S1, S2 muffled. RESPIRATORY: Breath sounds diminished in the bases. A few scattered rhonchi. No crackles. ABDOMEN is soft. Status post surgery. LEGS are no edema. No swelling. CENTRAL NERVOUS SYSTEM: No focal deficits. LABS: WBC 8.1, hemoglobin 13.5. Sodium 136. ASSESSMENT: 1. Abdominal pain with bowel obstruction secondary to volvulus, status post sigmoid colectomy and end colostomy. 2. Hypokalemia. 3. Chronic obstructive pulmonary disease. 4. History of multiple cerebrovascular accidents. 5. History of seizure disorder. 6. History of bipolar. 7. History of hypertension. 8. Remote history of EtOH. RECOMMENDATIONS AND DISCUSSION: Recommend to continue current medications, continue to monitor. Symptomatic treatment. Otherwise at this time, I would recommend continue the current medications. I would also recommend PT/OT evaluation and evaluation by the case management team for possible ECF rehab also. Otherwise, repeat labs. Symptomatic treatment. DVT prophylaxis. Guarded prognosis because of multiple complex medical issues. Further recommendations to follow. MMARMIDAL / CARISAN: [id number] /
[2019-03-17] MEDS: BACLOFEN 10 MG TAB PO SCH (20:23)
[2019-03-17] MEDS: SERTRALINE 50 MG TAB PO SCH (20:23)
[2019-03-18] MEDS: PHENYTOIN SODIUM EXTENDED 100 MG CAP PO SCH ×2 (05:51→12:27)
[2019-03-18] MEDS: ARIPiprazole 15 MG TAB PO SCH (05:51)
[2019-03-18] MEDS: TAMSULOSIN 0.4 MG CAP.ER.24H PO SCH (05:51)
[2019-03-18] MEDS: DOXAZOSIN 2 MG TAB PO SCH ×2 (05:51→12:27)
[2019-03-18] MEDS: METOCLOPRAMIDE 5 MG/ML 2 ML VIAL IVP SCH ×3 (05:52→16:47)
[2019-03-18] MEDS: LISINOPRIL 20 MG TAB PO SCH (05:52)
[2019-03-18] MEDS: FLUTICASONE 50MCG/SPRAY NASAL 16GM EA NOSTRIL SCH (06:02)
[2019-03-18] MEDS: PANTOPRAZOLE 40 MG/10 ML VIAL IVP SCH (07:54)
[2019-03-18] MEDS: HEPARIN SODIUM,PORCINE 5,000 UNIT/ML 1 ML VIAL SQ SCH ×2 (07:54→16:47)
[2019-03-18] MEDS ORDERED: SODIUM CHLORIDE 0.9% 1,000 ML IV ONE ×4 (10:12→23:54)
[2019-03-18 10:29] LABS: African American GFR (CKD) >90 (>60 ml/min/1.73 sqM); Anion Gap 10 mmol/L; Blood Urea Nitrogen 16 mg/dL (9-20); Carbon Dioxide 19 mmol/L (22-30); Chloride 107 mmol/L (98-107); Glucose 137 mg/dL (74-99); Non-African American GFR(CKD) >90 (>60 ml/min/1.73 sqM); Sodium 136 mmol/L (137-145)
[2019-03-18 10:40] LABS: Potassium 4.4 mmol/L (3.5-5.1)
[2019-03-18 11:15] LABS: Basophils % (A) 0 %; Eosinophils # (A) 0.1 k/uL (0-0.7); Eosinophils % (A) 1 %; HCT 47.9 % (39.0-53.0); HGB 15.6 gm/dL (13.0-17.5); Lymphocytes # (A) 0.8 k/uL (1.0-4.8); Lymphocytes % (A) 7 %; MCH 30.2 pg (25.0-35.0); MCHC 32.7 g/dL (31.0-37.0); MCV 92.5 fL (80.0-100.0); Mean Platelet Volume 9.6; Monocytes # (A) 1.1 k/uL (0-1.0); Monocytes % (A) 9 %; Neutrophils % (A) 83 %; Platelet Count 236 k/uL (150-450); RBC 5.17 m/uL (4.30-5.90); RDW 15.8 % (11.5-15.5); WBC 12.1 k/uL (3.8-10.6)
[2019-03-18] MEDS: SODIUM CHLORIDE 0.9% 1,000 ML IV SCH ×2 (11:27→19:39)
--- NOTE | 2019-03-18 11:46 | P.PN ---
<Jordana Sanchez Coby - Last Filed: 03/18/19 11:37> Subjective Progress Note Date: 03/18/19 CHIEF COMPLAINT: obstruction HISTORY OF PRESENT ILLNESS: Patient is status post sigmoid colectomy with end colostomy secondary to sigmoid volvulus. POD #2. Patient reports abdominal pain is tolerable at this time. He denies nausea or vomiting. However, he did have an episode of emesis overnight. He is tolerating clear liquid diet this morning. Ostomy with liquid stool noted. Patient reports he has not been using his incentive spirometry very often. Patient with history of CVA and is wheelchair- bound. Spoke with nursing to see if patient could be placed in recliner chair today with fran lift. Hester catheter with very dark herbert urine. Only 425 mL urine output over the last 24 hours per EMR documentation. T-max of 100.1F over the last 24 hours. Patient is mildly tachycardic this morning. Blood pressure stable. WBC 12.1 today. PHYSICAL EXAM: VITAL SIGNS: Reviewed. GENERAL: Well-developed in no acute distress. HEENT: No sclera icterus. Extraocular movements grossly intact. Moist buccal mucosa. Head is atraumatic, normocephalic. ABDOMEN: Obese. Nontender. Dressing clean dry and intact. Ostomy with brown liquid stool. Stoma viable. NEUROLOGIC: Alert and oriented. Cranial nerves II through XII grossly intact. ASSESSMENT: 1. Sigmoid volvulus, s/p status post sigmoid colectomy with end colostomy PLAN: 1. Continue clear liquid diet. Do not advance at this time. 2. 2L NS bolus 3. Strict I&O 4. Increase maintenance IV fluids to 125 mL an hour. Discontinue potassium in IV fluids 5. Continue to monitor vital signs 6. Incentive spirometer encouraged. 7. Activity as tolerated. PT and OT and consult. Spoke with nursing to get patient in the recliner chair today with Fran lift 8. Begin Zosyn 9. Obtain chest x-ray 10. Ostomy nurse on consult Nurse practitioner note has been reviewed by physician. Signing provider agrees with the documented findings, assessment, and plan of care. Objective - Vital Signs Vital signs: Vital Signs Temp 99.4 F 03/18/19 06:39 Pulse 103 H 03/18/19 06:39 Resp 16 03/18/19 06:39 BP 145/97 03/18/19 06:39 Pulse Ox 94 L 03/18/19 06:39 Intake & Output 03/17/19 03/18/19 03/18/19 18:59 06:59 18:59 Output Total 825 Balance -825 Output: Urine 425 Emesis 400 Other: Voiding Method Indwelling Catheter Indwelling Catheter Indwelling Catheter # Bowel Movements 0 - Labs CBC & Chem 7: 03/18/19 09:26 03/18/19 09:26 Labs: Abnormal Lab Results - Last 24 Hours (Table) 03/18/19 03/18/19 Range/Units 09:26 09:26 WBC 12.1 H (3.8-10.6) k/uL RDW 15.8 H (11.5-15.5) % Neutrophils # 10.0 H (1.3-7.7) k/uL Lymphocytes # 0.8 L (1.0-4.8) k/uL Monocytes # 1.1 H (0-1.0) k/uL Sodium 136 L (137-145) mmol/L Carbon Dioxide 19 L (22-30) mmol/L Creatinine 0.55 L (0.66-1.25) mg/dL Glucose 137 H (74-99) mg/dL <Matteo Kirkpatrick - Last Filed: 03/18/19 16:15> Subjective As above. Patient has had some decrease in oxygenation and also found to be more tachycardic today. Denies pain. Had a large emesis last night. Denies nausea or vomiting today. He is tolerating clears. Ostomy is functioning. Chest x-ray results show left-sided infiltrate and pneumoperitoneum that would be expected. Continue antibiotics for possible aspiration. Continue clear liquids. Objective - Vital Signs Vital signs: Vital Signs Temp 99.4 F 03/18/19 14:35 Pulse 120 H 03/18/19 15:51 Resp 16 03/18/19 06:39 BP 112/78 03/18/19 14:35 Pulse Ox 91 L 03/18/19 15:51 Intake & Output 03/17/19 03/18/19 03/18/19 18:59 06:59 18:59 Output Total 825 120 Balance -825 -120 Output: Urine 425 120 Emesis 400 Other: Voiding Method Indwelling Catheter Indwelling Catheter Indwelling Catheter # Bowel Movements 0 - Labs CBC & Chem 7: 03/18/19 09:26 03/18/19 09:26 Labs: Abnormal Lab Results - Last 24 Hours (Table) 03/18/19 03/18/19 Range/Units 09: 09:26 WBC 12.1 H (3.8-10.6) k/uL RDW 15.8 H (11.5-15.5) % Neutrophils # 10.0 H (1.3-7.7) k/uL Lymphocytes # 0.8 L (1.0-4.8) k/uL Monocytes # 1.1 H (0-1.0) k/uL Sodium 136 L (137-145) mmol/L Carbon Dioxide 19 L (22-30) mmol/L Creatinine 0.55 L (0.66-1.25) mg/dL Glucose 137 H (74-99) mg/dL
[2019-03-18] MEDS: FUROSEMIDE 20 MG TAB PO SCH (12:27)
[2019-03-18] MEDS: PIPERACILLIN-TAZOBACTAM 3.375 GM in SODIUM CHLORIDE 0.9% 100 ML IVPB SCH (14:42)
--- NOTE | 2019-03-18 15:11 | XR ---
EXAMINATION TYPE: XR chest 1V DATE OF EXAM: 03/18/2019 HISTORY: Shortness of breath. COMPARISON: 03/14/2019 TECHNIQUE: Single view of the chest is submitted. FINDINGS: Demonstrated are scattered senescent parenchymal change. There is evidence of pneumoperitoneum. Correlate for recent surgical intervention otherwise a perfora sathish viscus not excluded. Strandy density left lung base may reflect atelectasis or developing infiltrate. Correlate clinically . The heart is stable. Hilar and mediastinal structures are within normal limits. Degenerative changes are seen of the dorsal spine. IMPRESSION: 1. There is evidence of pneumoperitoneum. Correlate for recent surgical intervention otherwise a per forated viscus not excluded. 2. Strandy density left lung base may reflect atelectasis or developing infiltrate. Correlate clinic ally.
[2019-03-18] MEDS ORDERED: IPRATROPIUM-ALBUTEROL 3 ML NEB INHALATION PRN (16:10)
--- NOTE | 2019-03-18 19:39 | PN ---
PROGRESS NOTE DATE OF SERVICE: 03/18/2019 This 68-year-old gentleman who was admitted with abdominal pain, obstruction and sigmoid volvulus, had surgery. The patient also had hypokalemia. The patient also had hypoxia. The patient also had tachycardia. A chest x-ray ordered by me which was reviewed again currently showed evidence of some atelectasis. The patient being closely monitored at this time. Patient also had diminished urine output also. PAST MEDICAL HISTORY: Reviewed. REVIEW OF SYSTEMS: Cardiovascular system: As mentioned earlier. RESPIRATORY: As mentioned earlier. GI no nausea or vomiting. no nausea or vomiting. Nervous system: No numbness or weakness. CURRENT MEDICATIONS: Reviewed and include: 1. Abilify 50 mg p.o. daily. 2. Lioresal 10 mg p.o. q.h.s. 3. Cardura 2 mg p.o. t.i.d. 4. Flonase. 5. Lasix 20 mg p.o. daily. 6. Heparin 5000 subcu b.i.d. 7. Dilaudid 0.5 mg q.3 p.r.n. 8. Zestril 40 mg p.o. daily. 9. Reglan 10 mg q.6h p.r.n. 10.Zofran 4 mg q.6h p.r.n. 11.Protonix 40 mg IV daily. 12.Dilantin 200 mg p.o. b.i.d. 13.Diovan 100 mg p.o. daily. 14.Zosyn 3.375 IV q.8. 15.Zoloft 150 mg p.o. daily. 16.Flomax 0.4 daily. PHYSICAL EXAM: Patient is alert, oriented x2, pulse is 112, blood pressure is 112/70, respiration 18, temperature 99.4, pulse ox 86 percent on room air. HEENT are conjunctivae normal. Oral mucosa moist. NECK is no jugular venous distention. No carotid bruit. No lymph node enlargement. CARDIOVASCULAR: S1, S2 muffled. RESPIRATION: Breath sounds diminished in the bases. Bilateral scattered rhonchi and crackles. ABDOMEN: Soft, obese, status post surgery. LEGS: No edema. No swelling. NERVOUS SYSTEM as mentioned earlier. Moves all four limbs. No focal deficits. Lymphatics: No lymph nodes palpable in the neck, axillae or groin. SKIN: No ulcer, rashes or bleeding. JOINTS: No active deforming arthropathy. LAB STUDIES: WBC 12.1, hemoglobin 15.6 and sodium is 136. ASSESSMENT: 1. Abdominal pain with bowel obstruction secondary to volvulus, status post sigmoid colectomy and end colostomy. 2. Hypoxic respiratory failure postoperative possibly secondary to atelectasis. 3. Hypokalemia. 4. Tachycardia possibly sinus. 5. Chronic obstructive pulmonary disease. 6. History of multiple cerebrovascular accident. 7. History of seizure disorder. 8. History of bipolar. 9. History of hypertension. 10.Remote history of EtOH. RECOMMENDATIONS AND DISCUSSION: Recommend to continue current medications, symptomatic treatment. I would also recommend a D-dimer. Otherwise, if the D-dimer is high, I would recommend CT angiogram. Other than that, I would recommend bronchodilators, set of troponins and transfer to remote telemetry. Continue the rest of medication. DVT prophylaxis. Further recommendations to follow. MMARMIDAL / CARISAN: [id number] /
[2019-03-18] MEDS: IPRATROPIUM-ALBUTEROL 3 ML NEB INHALATION SCH (20:11)
[2019-03-18 22:25] LABS: Basophils % (A) 0 %; Eosinophils # (A) 0.1 k/uL (0-0.7); Eosinophils % (A) 0 %; HCT 40.5 % (39.0-53.0); Lymphocytes # (A) 0.6 k/uL (1.0-4.8); Lymphocytes % (A) 4 %; MCH 30.1 pg (25.0-35.0); MCHC 32.2 g/dL (31.0-37.0); MCV 93.3 fL (80.0-100.0); Mean Platelet Volume 7.8; Monocytes # (A) 1.3 k/uL (0-1.0); Monocytes % (A) 8 %; Neutrophils # (A) 14.9 k/uL (1.3-7.7); Neutrophils % (A) 87 %; Platelet Count 290 k/uL (150-450); RBC 4.34 m/uL (4.30-5.90); RDW 14.3 % (11.5-15.5); WBC 17.1 k/uL (3.8-10.6)
[2019-03-18 22:49] LABS: Albumin 2.8 g/dL (3.5-5.0); Calcium 8.1 mg/dL (8.4-10.2); Potassium 3.6 mmol/L (3.5-5.1); Total Bilirubin 0.9 mg/dL (0.2-1.3); Total Protein 5.3 g/dL (6.3-8.2)
--- NOTE | 2019-03-18 23:54 | CT ---
EXAM: CT Angiography Chest With Intravenous Contrast CLINICAL HISTORY: rule out PE TECHNIQUE: Axial computed tomographic angiography images of the chest with intravenous contrast using pulmonary embolism protocol. DLP is 642.1 mGy- cm. This CT exam was performed using one or more of the following dose reduction techniques: automated exposure control, adjustment of the mA and/or kV according to patient size, and/or use of iterative reconstruction technique. MIP reconstructed images were created and reviewed. CONTRAST: 100 cc of Isovue-370 IV COMPARISON: No relevant prior studies available. FINDINGS: Artifacts: Motion. Pulmonary arteries: No central pulmonary embolus. Enlarged main pulmonary artery can be seen in setting of pulmonary arterial hypertension. Aorta: Ectasia of the root of the thoracic aorta. No thoracic aortic aneurysm or dissection. Lungs: Bilateral dependent densities are compatible with atelectasis. Pleural space: Small bilateral pleural effusions. No pneumothorax. Heart: Unremarkable. No cardiomegaly. No significant pericardial effusion. Mediastinum: Patulous fluid-filled esophagus. Bones/joints: No acute osseous abnormality. Degenerative changes of the spine. Soft tissues: Unremarkable. Lymph nodes: Unremarkable. Stomach and bowel: Distended fluid and gas-filled stomach. Intraperitoneal space: Small amount of pneumoperitoneum. Tubes, lines and devices: Malpositioned esophagogastric tube terminates in the right lower lobe bronchus. IMPRESSION: 1. Malpositioned esophagogastric tube terminates in the right lower lobe bronchus. Recommend repositioning and chest radiograph to confirm tube position prior to use. 2. Small amount of pneumoperitoneum is likely postsurgical. 3. Small bilateral pleural effusions with adjacent atelectasis. 4. No central pulmonary embolus. 5. Patulous fluid-filled esophagus. Distended fluid and gas-filled stomach. <MYCVCSECTION> [employer] 03/19/19 00:00 Verify Receipt with Nurse Verified receipt with ARMANDO Jaramillo on 03/19 00:00 (-04:00)
--- NOTE | 2019-03-18 23:55 | XR ---
EXAM: XR Abdomen, 2 Views CLINICAL HISTORY: ITS.REASON XR Reason: Confirm NGT placement TECHNIQUE: Frontal view of the abdomen/pelvis with upright view of the abdomen. COMPARISON: Chest CT 03/18/2019, CT abdomen and pelvis 03/15/2019 FINDINGS: Lower thorax: The tip of an esophagogastric tube projects over the right lower lobe bronchus. Intraperitoneal space: Pneumoperitoneum is better seen on accompanying CT. Gastrointestinal tract: Distended gas-filled loops of bowel throughout the abdomen. Bones/joints: Unremarkable. Soft tissues: Skin althea project over the midline lower abdomen. Tubes, lines and devices: High density material and the silhouette of a Hester catheter balloon project over the pelvis. IMPRESSION: 1. The tip of an esophagogastric tube projects over the right lower lobe bronchus. Recommend repositioning and repeat radiograph to confirm tube position, prior to use. 2. Distended gas-filled loops of bowel throughout the abdomen.
[2019-03-19] MEDS ORDERED: VANCOMYCIN IV PER PHARMACY 1 EACH MISC MISCELLANE PRN (00:18)
--- NOTE | 2019-03-19 00:46 | XR ---
EXAM: XR Chest, 1 View CLINICAL HISTORY: ITS.REASON XR Reason: new NGT TECHNIQUE: Frontal view of the chest. COMPARISON: No relevant prior studies available. FINDINGS: Limitations: Technique. Lungs: Hypoventilatory lungs. Bibasilar atelectasis. Pleural space: No pneumothorax. Heart: Apparent enlargement of the cardiomediastinal silhouette is likely in part due to low lung volumes. Mediastinum: See above. Bones/joints: No acute osseous abnormality. Tubes, lines and devices: The tip of an esophagogastric tube projects over the stomach. Upper abdomen: Right sub-diaphragmatic free air. IMPRESSION: The tip of an esophagogastric tube projects over the stomach.
[2019-03-19] MEDS: PHENYTOIN SODIUM EXTENDED 100 MG CAP PO SCH ×4 (01:01→20:30)
[2019-03-19] MEDS: BACLOFEN 10 MG TAB PO SCH ×2 (01:01→20:30)
[2019-03-19] MEDS: DOXAZOSIN 2 MG TAB PO SCH ×4 (01:01→20:30)
[2019-03-19] MEDS: SERTRALINE 50 MG TAB PO SCH ×2 (01:02→20:30)
[2019-03-19 01:24] LABS: Glucose,Whole Blood 189 mg/dL (75-99)
[2019-03-19] MEDS ORDERED: VANCOMYCIN 1,750 MG in SODIUM CHLORIDE 0.9% 500 ML 500 ML IVPB ONE (02:00)
[2019-03-19 02:30] LABS: African American GFR (CKD) >90 (>60 ml/min/1.73 sqM); Anion Gap 12 mmol/L; Blood Urea Nitrogen 23 mg/dL (9-20); Calcium 8.1 mg/dL (8.4-10.2); Carbon Dioxide 19 mmol/L (22-30); Chloride 108 mmol/L (98-107); Glucose 182 mg/dL (74-99); Non-African American GFR(CKD) 82 (>60 ml/min/1.73 sqM); Potassium 3.9 mmol/L (3.5-5.1); Sodium 139 mmol/L (137-145)
[2019-03-19 02:35] LABS: Basophils % (A) 0 %; Eosinophils # (A) 0.1 k/uL (0-0.7); Eosinophils % (A) 1 %; HCT 42.9 % (39.0-53.0); HGB 13.3 gm/dL (13.0-17.5); Lymphocytes # (A) 0.6 k/uL (1.0-4.8); Lymphocytes % (A) 4 %; MCH 29.4 pg (25.0-35.0); MCV 94.6 fL (80.0-100.0); Mean Platelet Volume 7.4; Monocytes # (A) 1.2 k/uL (0-1.0); Monocytes % (A) 8 %; Neutrophils # (A) 13.3 k/uL (1.3-7.7); Neutrophils % (A) 87 %; Platelet Count 228 k/uL (150-450); RBC 4.54 m/uL (4.30-5.90); RDW 14.3 % (11.5-15.5); WBC 15.3 k/uL (3.8-10.6)
[2019-03-19] MEDS: PIPERACILLIN-TAZOBACTAM 3.375 GM in SODIUM CHLORIDE 0.9% 100 ML IVPB SCH ×3 (03:11→15:11)
[2019-03-19] MEDS: HEPARIN SODIUM,PORCINE 5,000 UNIT/ML 1 ML VIAL SQ SCH ×3 (03:13→15:11)
[2019-03-19] MEDS: METOCLOPRAMIDE 5 MG/ML 2 ML VIAL IVP SCH ×4 (03:13→18:31)
[2019-03-19] MEDS: SODIUM CHLORIDE 0.9% 1,000 ML IV SCH ×3 (03:18→18:31)
[2019-03-19 05:43] LABS: Appearance,Urine Clear (Clear); Bacteria,Urine Occasional /hpf; Bilirubin,Urine 1+ (Negative); Blood,Urine Moderate (Negative); Color,Urine Dark Brown; Glucose,Urine (UA) Negative (Negative); Ketones,Urine Negative (Negative); Leukocyte Esterase,Urine Small (Negative); Mucus,Urine Rare /hpf; Nitrite,Urine Negative (Negative); Protein,Urine 1+ (Negative); RBC,Urine 143 /hpf (0-5); WBC,Urine 4 /hpf (0-5)
[2019-03-19 06:00] LABS: Specific Gravity,Urine >1.050 (1.001-1.035)
[2019-03-19] MEDS: FLUTICASONE 50MCG/SPRAY NASAL 16GM EA NOSTRIL SCH (06:30)
[2019-03-19] MEDS: ARIPiprazole 15 MG TAB PO SCH (06:30)
[2019-03-19] MEDS: TAMSULOSIN 0.4 MG CAP.ER.24H PO SCH (06:31)
[2019-03-19] MEDS: LISINOPRIL 20 MG TAB PO SCH (06:31)
[2019-03-19] MEDS: IPRATROPIUM-ALBUTEROL 3 ML NEB INHALATION SCH ×4 (07:27→19:50)
[2019-03-19] MEDS: PANTOPRAZOLE 40 MG/10 ML VIAL IVP SCH ×2 (08:36→20:33)
[2019-03-19] MEDS ORDERED: SODIUM CHLORIDE 0.9% 1,000 ML IV ONE ×2 (10:31→11:54)
--- NOTE | 2019-03-19 11:04 | ECHOF ---
Referral Reason:tachycardia w/ PACs MEASUREMENTS -------- HEIGHT: 172.7 cm WEIGHT: 104.3 kg BP: 96/62 RVIDd: 2.9 cm (< 3.3) IVSd: 1.3 cm (0.6 - 1.1) LVIDd: 4.4 cm (3.9 - 5.3) LVPWd: 1.3 cm (0.6 - 1.1) IVSs: 1.6 cm LVIDs: 3.2 cm LVPWs: 1.5 cm LA Diam: 3.5 cm (2.7 - 3.8) LAESV Index (A-L): 25.90 ml/m Ao Diam: 3.8 cm (2.0 - 3.7) AV Cusp: 2.5 cm (1.5 - 2.6) MV EXCURSION: 23.601 mm (> 18.000) MV EF SLOPE: 368 mm/s (70 - 150) EPSS: 0.3 cm MV E Silviano: 0.63 m/s MV DecT: 280 ms MV A Silviano: 0.97 m/s MV E/A Ratio: 0.65 RAP: 5.00 mmHg RVSP: 36.85 mmHg FINDINGS -------- Resting tachycardia (HR>100bpm). This was a technically adequate study. The left ventricular size is normal. There is mild concentric left ventricular hypertrophy. Overa ll left ventricular systolic function is normal with, an EF between 60 - 65 %. The right ventricle is normal in size. Normal LA size by volume 22+/-6 ml/m2. The right atrium is normal in size. Interatrial and interventricular septum intact. The aortic valve is trileaflet and appears structurally normal. The mitral valve is normal. Mild tricuspid regurgitation present. There is mild pulmonary hypertension. The right ventricular systolic pressure, as measured by Doppler, is 36.85mmHg. Trace/mild (physiologic) pulmonic regurgitation. The aortic root is dilated measuring 3.8cm. IVC Not well visulized. Small loculated near LV pericardial effusion noted CONCLUSIONS -------- 1. Resting tachycardia (HR>100bpm). 2. This was a technically adequate study. 3. The left ventricular size is normal. 4. There is mild concentric left ventricular hypertrophy. 5. Overall left ventricular systolic function is normal with, an EF between 60 - 65 %. 6. The right ventricle is normal in size. 7. Normal LA size by volume 22+/-6 ml/m2. 8. The right atrium is normal in size. 9. Interatrial and interventricular septum intact. 10. The aortic valve is trileaflet and appears structurally normal. 11. The mitral valve is normal. 12. Mild tricuspid regurgitation present. 13. There is mild pulmonary hypertension. 14. The right ventricular systolic pressure, as measured by Doppler, is 36.85mmHg. 15. Trace/mild (physiologic) pulmonic regurgitation. 16. The aortic root is dilated measuring 3.8cm. 17. IVC Not well visulized. 18. Small loculated near LV pericardial effusion noted INSTRUMENT AND ELECTRICAL TECHNICIAN: Jazz Danielle RDCS
[2019-03-19] MEDS: FUROSEMIDE 20 MG TAB PO SCH (11:12)
[2019-03-19 11:21] LABS: HCT 35.5 % (39.0-53.0); HGB 11.5 gm/dL (13.0-17.5); MCH 30.1 pg (25.0-35.0); MCHC 32.4 g/dL (31.0-37.0); MCV 92.9 fL (80.0-100.0); Mean Platelet Volume 7.5; Platelet Count 237 k/uL (150-450); RBC 3.82 m/uL (4.30-5.90); RDW 14.3 % (11.5-15.5); WBC 11.4 k/uL (3.8-10.6)
--- NOTE | 2019-03-19 12:41 | P.PN ---
Subjective Progress Note Date: 03/19/19 Principal diagnosis: Sigmoid volvulus Patient yesterday evening had further decompensation. The patient was found to be tachycardic and somewhat hypoxic. Further emesis was noted. Nasogastric tube was placed. He has had significant output from the nasogastric tube. The output is somewhat dark in color however no inderjit blood seen. Hemoglobin relatively stable. White blood cell count was increased at 17.1. Today is down to 11.4. His lactic acid yesterday evening was 5.2 today is 3.7. Urine was quite dark although improving in both output and lightening in color. Patient denies pain. Ostomy functioning. Abdominal x-rays show ileus pattern. Objective - Vital Signs Vital signs: Vital Signs Temp 98.5 F 03/19/19 12:00 Pulse 101 H 03/19/19 12:00 Resp 25 H 03/19/19 12:00 BP 90/61 03/19/19 12:00 Pulse Ox 98 03/19/19 12:00 Intake & Output 03/18/19 03/19/19 03/19/19 18:59 06:59 18:59 Intake Total 951 2625 Output Total 120 2440 1472 Balance -120 -1489 1153 Intake: IV 951 625 Piperacillin-Tazobactam 3 75 125 .375 gm In Sodium Chloride 0.9% 100 ml @ 25 mls/hr IVPB Q8HR [facility] Rx# :[id number] Sodium Chloride 0.9% 1, 375 500 000 ml @ 150 mls/hr IV . Q6H40M [facility] Rx#:[id number] Vancomycin 1,750 mg In 501 Sodium Chloride 0.9% 500 ml 500 ml @ 167 mls/hr IVPB ONCE ONE Rx#: [id number] Intake, IV Titration 2000 Amount Sodium Chloride 0.9% 1, 1000 000 ml @ 999 mls/hr IV . Q1H1M ONE Rx#:[id number] Sodium Chloride 0.9% 1, 1000 000 ml @ 999 mls/hr IV . Q1H1M ONE Rx#:[id number] Output: Gastric Drainage 600 1275 Urine 120 90 147 Stool 150 50 Emesis 1600 Other: Voiding Method Indwelling Catheter Indwelling Catheter Indwelling Catheter - Exam Abdomen: Soft, mild distention, incision clean and dry, ostomy functioning, minimal tenderness - Labs CBC & Chem 7: 03/19/19 11:09 03/19/19 02:08 Labs: Abnormal Lab Results - Last 24 Hours (Table) 03/18/19 03/18/19 03/18/19 Range/Units 17:39 21:04 21:55 WBC 17.1 H (3.8-10.6) k/uL RBC (4.30-5.90) m/uL Hgb (13.0-17.5) gm/dL Hct (39.0-53.0) % Neutrophils # 14.9 H (1.3-7.7) k/uL Lymphocytes # 0.6 L (1.0-4.8) k/uL Monocytes # 1.3 H (0-1.0) k/uL D-Dimer 6.62 H (<0.60) mg/L FEU Chloride (98-107) mmol/L Carbon Dioxide (22-30) mmol/L BUN (9-20) mg/dL Glucose (74-99) mg/dL POC Glucose (mg/dL) (75-99) mg/dL Plasma Lactic Acid Sam 5.2 H* (0.7-2.0) mmol/L Calcium (8.4-10.2) mg/dL ALT (21-72) U/L Total Protein (6.3-8.2) g/dL Albumin (3.5-5.0) g/dL Ur Specific [place] (1.001-1.035) Urine Protein (Negative) Urine Blood (Negative) Urine Bilirubin (Negative) Ur Leukocyte Esterase (Negative) Urine RBC (0-5) /hpf Urine Bacteria (None) /hpf Urine Mucus (None) /hpf 03/18/19 03/19/19 03/19/19 Range/Units 21:55 01:22 02:02 WBC (3.8-10.6) k/uL RBC (4.30-5.90) m/uL Hgb (13.0-17.5) gm/dL Hct (39.0-53.0) % Neutrophils # (1.3-7.7) k/uL Lymphocytes # (1.0-4.8) k/uL Monocytes # (0-1.0) k/uL D-Dimer (<0.60) mg/L FEU Chloride (98-107) mmol/L Carbon Dioxide (22-30) mmol/L BUN 21 H (9-20) mg/dL Glucose 193 H (74-99) mg/dL POC Glucose (mg/dL) 189 H (75-99) mg/dL Plasma Lactic Acid Sam 5.0 H* (0.7-2.0) mmol/L Calcium 8.1 L (8.4-10.2) mg/dL ALT 14 L (21-72) U/L Total Protein 5.3 L (6.3-8.2) g/dL Albumin 2.8 L (3.5-5.0) g/dL Ur Specific [place] (1.001-1.035) Urine Protein (Negative) Urine Blood (Negative) Urine Bilirubin (Negative) Ur Leukocyte Esterase (Negative) Urine RBC (0-5) /hpf Urine Bacteria (None) /hpf Urine Mucus (None) /hpf 03/19/19 03/19/19 03/19/19 Range/Units 02:08 02:08 05:25 WBC 15.3 H (3.8-10.6) k/uL RBC (4.30-5.90) m/uL Hgb (13.0-17.5) gm/dL Hct (39.0-53.0) % Neutrophils # 13.3 H (1.3-7.7) k/uL Lymphocytes # 0.6 L (1.0-4.8) k/uL Monocytes # 1.2 H (0-1.0) k/uL D-Dimer (<0.60) mg/L FEU Chloride 108 H (98-107) mmol/L Carbon Dioxide 19 L (22-30) mmol/L BUN 23 H (9-20) mg/dL Glucose 182 H (74-99) mg/dL POC Glucose (mg/dL) (75-99) mg/dL Plasma Lactic Acid Sam (0.7-2.0) mmol/L Calcium 8.1 L (8.4-10.2) mg/dL ALT (21-72) U/L Total Protein (6.3-8.2) g/dL Albumin (3.5-5.0) g/dL Ur Specific [place] >1.050 H (1.001-1.035) Urine Protein 1+ H (Negative) Urine Blood Moderate H (Negative) Urine Bilirubin 1+ H (Negative) Ur Leukocyte Esterase Small H (Negative) Urine RBC 143 H (0-5) /hpf Urine Bacteria Occasional H (None) /hpf Urine Mucus Rare H (None) /hpf 03/19/19 03/19/19 Range/Units 06:17 11:09 WBC 11.4 H (3.8-10.6) k/uL RBC 3.82 L (4.30-5.90) m/uL Hgb 11.5 L (13.0-17.5) gm/dL Hct 35.5 L (39.0-53.0) % Neutrophils # (1.3-7.7) k/uL Lymphocytes # (1.0-4.8) k/uL Monocytes # (0-1.0) k/uL D-Dimer (<0.60) mg/L FEU Chloride (98-107) mmol/L Carbon Dioxide (22-30) mmol/L BUN (9-20) mg/dL Glucose (74-99) mg/dL POC Glucose (mg/dL) (75-99) mg/dL Plasma Lactic Acid Sam 3.7 H* (0.7-2.0) mmol/L Calcium (8.4-10.2) mg/dL ALT (21-72) U/L Total Protein (6.3-8.2) g/dL Albumin (3.5-5.0) g/dL Ur Specific [place] (1.001-1.035) Urine Protein (Negative) Urine Blood (Negative) Urine Bilirubin (Negative) Ur Leukocyte Esterase (Negative) Urine RBC (0-5) /hpf Urine Bacteria (None) /hpf Urine Mucus (None) /hpf Assessment and Plan (1) Abdominal pain Current Visit: Yes Status: Acute Code(s): R10.9 - UNSPECIFIED ABDOMINAL PAIN SNOMED Code(s): 52854843 (2) Sigmoid volvulus Narrative/Plan: Patient doing better today. Suspect aspiration related to the patient's postoperative ileus. Continue IV resuscitation. Keep nasogastric tube to suction. Monitor nasogastric tube output appearance. Repeat labs tomorrow. Continue ICU care. Current Visit: Yes Status: Acute Code(s): K56.2 - VOLVULUS SNOMED Code(s): 897744498
--- NOTE | 2019-03-19 13:14 | P.CNPUL ---
History of Present Illness Consult date: 03/19/19 Chief complaint: Bowel obstruction, GI bleeds History of present illness: This is a 68-year-old male patient who presented with chronic obstruction. The patient was taken to the operating room for sigmoid volvulus and colonic obstruction. The patient underwent the surgery on 03/16/2019. Surgery involved sigmoid colectomy and end colostomy. The patient was recovering in the medical floor and yesterday the patient became nauseous and had several emesis of coffee-ground material. Subsequently the patient became also hypotensive. His lactic acid level was also on the rise. Based on that the patient a chest to the ICU. He was started on IV fluids. He was already on IV Zosyn that was continued. NG tube was inserted and the patient has drained approximately 500 mL of coffee-ground material into the suction bottle. Hemoglobin is stable and he dropped down to 13.3 initially from a baseline of 15.6 and later on today it is down to 11.5. No packed RBC transfusion was done. The patient was given IV fluids. I ordered an additional 2 L this morning to the patient. The patient has sluggish bowel sounds. There is some stool in the colostomy bag which is brown and nonbloody and non-melanotic. Nevertheless the NG tube is still draining some minimal amount of coffee-ground material. The patient is not receiving any pressors. With fluid resuscitation, the serum lactic acid level dropped down to 3.7. He is awake. Is following commands. His answering questions. The patient was seen by general surgery today. The ostomy is functional. They opted to monitor this patient in the ICU keeping the NG tube in place. Noted the patient also had a CT angiogram of the chest that shows some lower lobe infiltrates bilaterally and this could be potentially related to aspiration. The patient however is not having any respiratory distress this morning. No cough. No sputum production. NG tube will be kept in place. Flui d resuscitation is also being continued. White cell count is at 11.4 this morning. Review of Systems Constitutional: Reports fatigue, Reports poor appetite, Reports weakness, Reports weight loss Eyes: denies as per HPI, denies blurred vision, denies bulging eye, denies decreased vision, denies diplopia, denies discharge, denies dry eye, denies irritation, denies itching, denies pain, denies photophobia, denies loss of peripheral vision, denies loss of vision, denies tunnel vision/blind spots Ears: deny: decreased hearing, ear discharge, earache, tinnitus Ears, nose, mouth and throat: Denies headache, Denies sore throat Breasts: absent: as per HPI, gynecomastia Respiratory: Denies cough Gastrointestinal: Reports abdominal pain, Reports change in bowel habits, Reports coffee ground emesis, Reports nausea, Reports vomiting Genitourinary: Reports as per HPI Musculoskeletal: Reports as per HPI Musculoskeletal: absent: ankle pain, ankle stiffness, ankle swelling Integumentary: Reports as per HPI Neurological: Reports as per HPI Psychiatric: Reports as per HPI Endocrine: Reports as per HPI Hematologic/Lymphatic: Reports as per HPI Allergic/Immunologic: Reports as per HPI Past Medical History Past Medical History: COPD, CVA/TIA Additional Past Medical History / Comment(s): Patient also has seizure disorder, bipolar disorder, hypertension, COPD, multiple CVAs in the past to the point where the patient is essentially bedridden at this point. The patient has history of colonic distention in the past requiring rectal tube insertion back in 2016, BPH, bipolar disorder, seizure disorder, COPD History of Any Multi-Drug Resistant Organisms: None Reported Past Surgical History: No Surgical Hx Reported, Bowel Resection Additional Past Surgical History / Comment(s): Sigmoid colectomy and end colostomy Past Anesthesia/Blood Transfusion Reactions: No Reported Reaction Past Psychological History: Bipolar Smoking Status: Never smoker Past Alcohol Use History: Abuse Additional Past Alcohol Use History / Comment(s): pt states he used to be an alcoholic and his last drink was years ago Past Drug Use History: None Reported Medications and Allergies Home Medications Medication Instructions Recorded Confirmed Type ARIPiprazole [Abilify] 15 mg PO DAILY@0604/30/16 03/14/19 History Acetaminophen [Tylenol] 500 mg PO Q4-6H PRN 04/30/16 03/14/19 History Aspirin EC [Ecotrin Low Dose] 81 mg PO DAILY@59904/30/16 03/14/19 History Baclofen [Lioresal] 10 mg PO HS@209904/30/16 03/14/19 History Doxazosin Mesylate 2 mg PO TID@0600,1300,209904/30/16 03/14/19 History Lisinopril 40 mg PO DAILY@0600 04/30/16 03/14/19 History Magnesium Hydroxide [Milk of 1,200 mg PO Q48H PRN 04/30/16 03/14/19 History Magnesia] Phenytoin Sodium Extended 200 mg PO BID@0600,209904/30/16 03/14/19 History [Dilantin] Sertraline HCl [Zoloft] 100 mg PO DAILY@209904/30/16 03/14/19 History Tamsulosin HCl [Flomax] 0.4 mg PO DAILY@0600 04/30/16 03/14/19 History Phenytoin Sodium Extended 100 mg PO DAILY@1300 cap 05/05/16 03/14/19 Rx [Dilantin] ALPRAZolam [Xanax] 0.25 mg PO TID@0600,1300,209903/14/19 03/14/19 History Bisacodyl 10 mg RECTAL DAILY PRN 03/14/19 03/14/19 History Bisacodyl [Dulcolax] 10 mg PO Q48H PRN 03/14/19 03/14/19 History Fluticasone Nasal [place] [Flonase 1 spray EA NOSTRIL DAILY@59903/14/19 03/14/19 History Nasal [place]] Furosemide [Lasix] 20 mg PO DAILY@129903/14/19 03/14/19 History Na Phos,M-B/Na Phos,Di-Ba [Fleet 133 ml RECTAL DAILY PRN 03/14/19 03/14/19 History Adult] Omeprazole 20 mg PO DAILY@59903/14/19 03/14/19 History Potassium Chloride ER [K-Dur 10] 20 meq PO BID@06,199903/14/19 03/14/19 History Sertraline [Zoloft] 50 mg PO DAILY@209903/14/19 03/14/19 History Vitamin B Complex/Folic Acid 0.4 mg PO DAILY@59903/14/19 03/14/19 History [B-Complex Tablet] Allergies Allergy/AdvReac Type Severity Reaction Status Date / Time No Known Allergies Allergy Verified 03/14/19 14:29 Physical Exam Vitals: Vital Signs Temp Pulse Pulse Resp BP BP BP 03/19/19 12:00 98.5 F 101 H 25 H 90/61 03/19/19 11:58 94 03/19/19 11:49 100 03/19/19 11:30 92 14 83/56 03/19/19 11:00 111 H 11 L 82/48 03/19/19 10:30 111 H 30 H 82/55 03/19/19 10:00 105 H 27 H 70/36 03/19/19 09:30 105 H 19 96/62 03/19/19 09:00 107 H 29 H 97/59 03/19/19 08:30 110 H 33 H 105/63 03/19/19 08:00 98.0 F 107 H 28 H 102/64 03/19/19 07:38 98 03/19/19 07:30 101 H 32 H 106/61 03/19/19 07:29 82 03/19/19 07:00 98 30 H 112/90 03/19/19 06:30 104 H 16 105/65 03/19/19 06:00 107 H 21 03/19/19 05:30 104 H 33 H 88/62 03/19/19 05:00 102 H 39 H 101/59 03/19/19 04:30 107 H 36 H 104/62 03/19/19 04:00 97.7 F 104 H 31 H 96/61 03/19/19 03:30 108 H 31 H 99/67 03/19/19 03:00 113 H 16 88/60 03/19/19 02:30 107 H 34 H 85/61 03/19/19 02:00 114 H 12 93/61 03/19/19 01:30 97.6 F 118 H 13 87/69 03/18/19 22:44 127 H 88/40 03/18/19 22:36 124 H 93/55 03/18/19 20:20 83 03/18/19 20:13 80 03/18/19 19:39 98.1 F 113 H 35 H 72/58 03/18/19 15:51 120 H 03/18/19 14:36 03/18/19 14:35 99.4 F 112 H 112/78 Pulse Ox 03/19/19 12:00 98 03/19/19 11:58 03/19/19 11:49 03/19/19 11:30 03/19/19 11:00 98 03/19/19 10:30 98 03/19/19 10:00 100 03/19/19 09:30 100 03/19/19 09:00 99 03/19/19 08:30 98 03/19/19 08:00 96 03/19/19 07:38 03/19/19 07:30 03/19/19 07:29 03/19/19 07:00 95 03/19/19 06:30 03/19/19 06:00 94 L 03/19/19 05:30 95 03/19/19 05:00 94 L 03/19/19 04:30 03/19/19 04:00 93 L 03/19/19 03:30 03/19/19 03:00 92 L 03/19/19 02:30 03/19/19 02:00 03/19/19 01:30 94 L 03/18/19 22:44 03/18/19 22:36 93 L 03/18/19 20:20 03/18/19 20:13 03/18/19 19:39 89 L 03/18/19 15:51 91 L 03/18/19 14:36 89 L 03/18/19 14:35 86 L Intake and Output 03/18/19 03/19/19 03/19/19 22:59 06:59 14:59 Intake Total 951 2625 Output Total 0798 070 4265 Balance -1274 933 1300 Intake: IV 951 625 Piperacillin-Tazobactam 3 75 125 .375 gm In Sodium Chloride 0.9% 100 ml @ 25 mls/hr IVPB Q8HR [facility] Rx# :[id number] Sodium Chloride 0.9% 1, 375 500 000 ml @ 150 mls/hr IV . Q6H40M [facility] Rx#:[id number] Vancomycin 1,750 mg In 501 Sodium Chloride 0.9% 500 ml 500 ml @ 167 mls/hr IVPB ONCE ONE Rx#: [id number] Intake, IV Titration 2000 Amount Sodium Chloride 0.9% 1, 1000 000 ml @ 999 mls/hr IV . Q1H1M [facility] Rx#:[id number] Sodium Chloride 0.9% 1, 1000 000 ml @ 999 mls/hr IV . Q1H1M [facility] Rx#:[id number] Output: Gastric Drainage 600 1275 Urine 90 182 Stool 150 50 Emesis 1600 Other: Voiding Method Indwelling Catheter Indwelling Catheter Indwelling Catheter Weight 104.326 kg Gen. appearance is calm and comfortable lying acute distress NG tube is in place Head exam was generally normal. There was no scleral icterus or corneal arcus. Mucous membranes were moist. Neck was supple and without jugular venous distension, thyromegaly, or carotid bruits. Carotids were easily palpable bilaterally. There was no adenopathy. Oral examination shows multiple missing teeth and poor dental condition Lung sounds are diminished bilaterally in the lung bases along with some bibasilar crackles. Cardiac exam revealed the PMI to be normally situated and sized. The rhythm was regular and no extrasystoles were noted during several minutes of auscultation. The first and second heart sounds were normal and physiologic splitting of the second heart sound was noted. There were no murmurs, rubs, clicks, or gallops. Abdomen is soft and nondistended. The ostomy is functional and viable. No direct tenderness amount a guarding. Bowel sounds are hypoactive. Examination of the skin revealed no evidence of significant rashes, suspicious appearing nevi or other concerning lesions. Neurologically the patient is alert and awake. Cranial nerves are grossly intac t. The patient has a right-sided weakness related to previous CVA. Gait cannot be assessed as the patient is wheelchair-bound/bedbound and he is nonambulatory at baseline. Results - Laboratory Findings CBC and BMP: 03/19/19 11:09 03/19/19 02:08 PT/INR, D-dimer D-Dimer 6.62 mg/L FEU (<0.60) H 03/18/19 17:39 Abnormal lab findings: Abnormal Labs 03/15/19 03/15/19 03/16/19 10:38 10:38 14:07 WBC RBC 4.22 L 4.22 L Hgb 12.6 L 12.6 L Hct RDW Neutrophils # Lymphocytes # 0.5 L Monocytes # D-Dimer Sodium Potassium 3.4 L Chloride 111 H Carbon Dioxide 21 L BUN Creatinine Glucose 71 L POC Glucose (mg/dL) Plasma Lactic Acid Sam Calcium ALT Total Protein Albumin Ur Specific [place] Urine Protein Urine Blood Urine Bilirubin Ur Leukocyte Esterase Urine RBC Urine Bacteria Urine Mucus 03/16/19 03/17/19 03/17/19 14:07 09:21 09:21 WBC RBC Hgb Hct RDW Neutrophils # Lymphocytes # 0.6 L Monocytes # D-Dimer Sodium 136 L Potassium Chloride 108 H Carbon Dioxide 20 L BUN 8 L Creatinine 0.59 L 0.65 L Glucose 106 H 269 H POC Glucose (mg/dL) Plasma Lactic Acid Sam Calcium 8.1 L 8.2 L ALT Total Protein Albumin Ur Specific [place] Urine Protein Urine Blood Urine Bilirubin Ur Leukocyte Esterase Urine RBC Urine Bacteria Urine Mucus 03/18/19 03/18/19 03/18/19 09:26 09:26 17:39 WBC 12.1 H RBC Hgb Hct RDW 15.8 H Neutrophils # 10.0 H Lymphocytes # 0.8 L Monocytes # 1.1 H D-Dimer 6.62 H Sodium 136 L Potassium Chloride Carbon Dioxide 19 L BUN Creatinine 0.55 L Glucose 137 H POC Glucose (mg/dL) Plasma Lactic Acid Sam Calcium ALT Total Protein Albumin Ur Specific [place] Urine Protein Urine Blood Urine Bilirubin Ur Leukocyte Esterase Urine RBC Urine Bacteria Urine Mucus 03/18/19 03/18/19 03/18/19 21:04 21:55 21:55 WBC 17.1 H RBC Hgb Hct RDW Neutrophils # 14.9 H Lymphocytes # 0.6 L Monocytes # 1.3 H D-Dimer Sodium Potassium Chloride Carbon Dioxide BUN 21 H Creatinine Glucose 193 H POC Glucose (mg/dL) Plasma Lactic Acid Sam 5.2 H* Calcium 8.1 L ALT 14 L Total Protein 5.3 L Albumin 2.8 L Ur Specific [place] Urine Protein Urine Blood Urine Bilirubin Ur Leukocyte Esterase Urine RBC Urine Bacteria Urine Mucus 03/19/19 03/19/19 03/19/19 01:22 02:02 02:08 WBC 15.3 H RBC Hgb Hct RDW Neutrophils # 13.3 H Lymphocytes # 0.6 L Monocytes # 1.2 H D-Dimer Sodium Potassium Chloride Carbon Dioxide BUN Creatinine Glucose POC Glucose (mg/dL) 189 H Plasma Lactic Acid Sam 5.0 H* Calcium ALT Total Protein Albumin Ur Specific [place] Urine Protein Urine Blood Urine Bilirubin Ur Leukocyte Esterase Urine RBC Urine Bacteria Urine Mucus 03/19/19 03/19/19 03/19/19 02:08 05:25 06:17 WBC RBC Hgb Hct RDW Neutrophils # Lymphocytes # Monocytes # D-Dimer Sodium Potassium Chloride 108 H Carbon Dioxide 19 L BUN 23 H Creatinine Glucose 182 H POC Glucose (mg/dL) Plasma Lactic Acid Sam 3.7 H* Calcium 8.1 L ALT Total Protein Albumin Ur Specific [place] >1.050 H Urine Protein 1+ H Urine Blood Moderate H Urine Bilirubin 1+ H Ur Leukocyte Esterase Small H Urine RBC 143 H Urine Bacteria Occasional H Urine Mucus Rare H 03/19/19 11:09 WBC 11.4 H RBC 3.82 L Hgb 11.5 L Hct 35.5 L RDW Neutrophils # Lymphocytes # Monocytes # D-Dimer Sodium Potassium Chloride Carbon Dioxide BUN Creatinine Glucose POC Glucose (mg/dL) Plasma Lactic Acid Sam Calcium ALT Total Protein Albumin Ur Specific [place] Urine Protein Urine Blood Urine Bilirubin Ur Leukocyte Esterase Urine RBC Urine Bacteria Urine Mucus Assessment and Plan Plan: 1 sigmoid volvulus and the patient is post sigmoid colectomy and end colostomy and the patient is postop day #3 2 upper GI bleed as the patient has some coffee-ground material collecting an NG tube with some drop in hemoglobin yet the patient is hemodynamically stable was resuscitated 3 lactic acidosis secondary to above, improving 4 hypotension secondary to above improved with fluid resuscitation and the patient is hemodynamically stable on no pressors at this point in time 5 CVA with right-sided weakness 6 seizure disorder 7 bipolar disorder 8 hypertension 9 the patient is bedridden secondary to previous history of CVA 10 bibasilar pulmonary infiltrates, suspect aspiration/pneumonia currently on IV Zosyn Plan Continue fluids and give the patient 2 L of IV fluid and it is a maintenance of 150 mL an hour. Monitor the output from the NG tube. At that hemoglobin. The patient is hemodynamically stable. The patient will be kept on IV Protonix. Will inform general surgery about this changes. Keep the patient nothing by mouth for now. Monitor lactic acid level. Keep IV Zosyn. Hold oral medications for now. We'll continue to follow and keep the patient ICU for 24 hours. We'll follow.
[2019-03-19] MEDS: VANCOMYCIN 1,750 MG in SODIUM CHLORIDE 0.9% 500 ML 500 ML IVPB SCH (15:11)
[2019-03-19 17:53] LABS: HCT 31.9 % (39.0-53.0); HGB 10.2 gm/dL (13.0-17.5); MCH 30.6 pg (25.0-35.0); MCV 95.8 fL (80.0-100.0); Platelet Count 205 k/uL (150-450); RBC 3.33 m/uL (4.30-5.90); RDW 15.1 % (11.5-15.5)
--- NOTE | 2019-03-19 19:12 | PN ---
PROGRESS NOTE DATE OF SERVICE: 03/19/2019 This 68-year-old gentleman who was admitted after surgery for sigmoid volvulus had problems during the last night. The patient had significant fluid from the NG tube. Patient also was suspected of an aspiration. Patient also underwent a chest CT and subsequently was transferred to ICU for close monitoring. The NG tube was found in the right lower lobe bronchus and a 2D echo showed ejection fraction 60-65 percent with minimal valvular abnormalities. Dr. Bal and Dr. Kirkpatrick are following the patient closely. The patient had some coffee-grounds emesis as well. PAST MEDICAL HISTORY: Reviewed. REVIEW OF SYSTEMS: CARDIOVASCULAR SYSTEM: No angina or palpitations. RESPIRATORY: As mentioned earlier. GI no nausea or vomiting. no dysuria or hematuria. NERVOUS SYSTEM: No numbness, weakness. CURRENT MEDICATIONS: Reviewed and include: 1. DuoNeb q.i.d. and p.r.n. 2. Abilify 15 mg q.h.s. 3. Lioresal 10 mg q.h.s. 4. Cardura 2 mg b.i.d. 5. Flonase. 6. Lasix 20 mg daily. 7. Heparin 5000 subcu q.8h. 8. Dilaudid 0.5 mg q.3 p.r.n. 9. Zestril 40 mg. 10.Reglan. 11.Zofran. 12.Protonix 40 mg IV daily. 13.Dilantin. 14.Flomax. 15.Vancomycin. PHYSICAL EXAMINATION: Patient is alert, oriented x2. Pulse is 98. Blood pressure is 108/60. Respirations 11. Temperature 98 degrees, pulse ox 94% on 2 L. HEENT: Conjunctivae normal. NECK: No jugular venous distention. CARDIOVASCULAR: S1, S2 muffled. RESPIRATORY: Breath sounds diminished in the bases. Scattered rhonchi and crackles. ABDOMEN: Soft, status post surgery. LEGS are no edema. No swelling. CENTRAL NERVOUS SYSTEM: No focal deficits. LABS: WBC 11.2, hemoglobin 7.5. Lactic acid 3.7. UA shows RBCs. ASSESSMENT: 1. Abdominal pain with bowel obstruction secondary to volvulus, status post sigmoid colectomy and end-colostomy. 2. Hypoxic acute hypoxic respiratory failure, possibly secondary to atelectasis. 3. Possible aspiration. 4. Coffee-grounds emesis, possible upper gastrointestinal bleeding. 5. Possible aspiration pneumonia. 6. Hypokalemia. 7. Tachycardia, possibly sinus. 8. Chronic obstructive pulmonary disease. 9. History of multiple cerebrovascular accident. 10.History of seizure disorder. 11.History of bipolar. 12.History of hypertension. 13.Remote history of EtOH. RECOMMENDATIONS AND DISCUSSION: In this 68-year-old gentleman who presented with multiple complex medical issues, we will monitor the patient closely, continue the current medications, management and symptomatic treatment. Continue with proton pump inhibitors. We will increase the dose to twice daily. Continue with the bronchodilators. Dr. Bal input appreciated. I would also recommend empiric antibiotics, IV antibiotics. Otherwise, closely monitor. Further recommendations to follow. MMODL / IJN: [id number] /
[2019-03-20] MEDS: METOCLOPRAMIDE 5 MG/ML 2 ML VIAL IVP SCH ×5 (00:52→23:22)
[2019-03-20] MEDS: HEPARIN SODIUM,PORCINE 5,000 UNIT/ML 1 ML VIAL SQ SCH ×5 (00:52→23:23)
[2019-03-20] MEDS: PIPERACILLIN-TAZOBACTAM 3.375 GM in SODIUM CHLORIDE 0.9% 100 ML IVPB SCH ×3 (00:52→19:11)
[2019-03-20 01:39] LABS: HCT 29.5 % (39.0-53.0); HGB 9.6 gm/dL (13.0-17.5); MCH 30.9 pg (25.0-35.0); MCHC 32.6 g/dL (31.0-37.0); MCV 94.8 fL (80.0-100.0); Mean Platelet Volume 8.5; Platelet Count 203 k/uL (150-450); RBC 3.11 m/uL (4.30-5.90); RDW 14.9 % (11.5-15.5); WBC 9.2 k/uL (3.8-10.6)
[2019-03-20] MEDS: SODIUM CHLORIDE 0.9% 1,000 ML IV SCH ×2 (03:28→10:02)
[2019-03-20] MEDS: VANCOMYCIN 1,750 MG in SODIUM CHLORIDE 0.9% 500 ML 500 ML IVPB SCH ×2 (04:11→17:41)
[2019-03-20] MEDS: LISINOPRIL 20 MG TAB PO SCH (05:05)
[2019-03-20] MEDS: DOXAZOSIN 2 MG TAB PO SCH ×3 (05:05→21:09)
[2019-03-20] MEDS: ARIPiprazole 15 MG TAB PO SCH (05:05)
[2019-03-20] MEDS: TAMSULOSIN 0.4 MG CAP.ER.24H PO SCH (05:05)
[2019-03-20] MEDS: PHENYTOIN SODIUM EXTENDED 100 MG CAP PO SCH ×2 (05:05→15:25)
[2019-03-20] MEDS: FLUTICASONE 50MCG/SPRAY NASAL 16GM EA NOSTRIL SCH (05:05)
[2019-03-20] MEDS: IPRATROPIUM-ALBUTEROL 3 ML NEB INHALATION SCH ×4 (06:37→20:43)
--- NOTE | 2019-03-20 08:02 | P.PN ---
Subjective Progress Note Date: 03/20/19 Principal diagnosis: Sigmoid volvulus Patient without complaints. Denies pain. Was transferred out of the ICU last night. Hemoglobin drifted down somewhat to 9.6. Only 80 mL out of the nasogastric tube. He is having ostomy function. Objective - Vital Signs Vital signs: Vital Signs Temp 99.0 F 03/20/19 07:14 Pulse 83 03/20/19 07:14 Resp 16 03/20/19 07:14 BP 106/71 03/20/19 07:14 Pulse Ox 98 03/20/19 07:14 Intake & Output 03/19/19 03/20/19 03/20/19 18:59 06:59 18:59 Intake Total 4125 1350 Output Total 1767 80 200 Balance 2358 1270 -200 Weight 104.326 kg Intake: IV 2125 1350 Piperacillin-Tazobactam 3 225 100 .375 gm In Sodium Chloride 0.9% 100 ml @ 25 mls/hr IVPB Q8HR [facility] Rx# :[id number] Sodium Chloride 0.9% 1, 1400 1250 000 ml @ 150 mls/hr IV . Q6H40M [facility] Rx#:[id number] Vancomycin 1,750 mg In 500 Sodium Chloride 0.9% 500 ml 500 ml @ 167 mls/hr IVPB ONCE ONE Rx#: [id number] Intake, IV Titration 2000 Amount Sodium Chloride 0.9% 1, 1000 000 ml @ 999 mls/hr IV . Q1H1M [facility] Rx#:[id number] Sodium Chloride 0.9% 1, 1000 000 ml @ 999 mls/hr IV . Q1H1M [facility] Rx#:[id number] Output: Gastric Drainage 1325 80 Urine 392 Stool 50 200 Other: Voiding Method Indwelling Catheter Indwelling Catheter - Exam Abdomen: Soft, nondistended, incision clean and dry, ostomy pink and functioning, minimal tenderness - Labs CBC & Chem 7: 03/20/19 00:14 03/19/19 02:08 Labs: Abnormal Lab Results - Last 24 Hours (Table) 03/19/19 03/19/19 03/20/19 Range/Units 11:09 17:38 00:14 WBC 11.4 H 11.0 H (3.8-10.6) k/uL RBC 3.82 L 3.33 L 3.11 L (4.30-5.90) m/uL Hgb 11.5 L 10.2 L 9.6 L (13.0-17.5) gm/dL Hct 35.5 L 31.9 L 29.5 L (39.0-53.0) % Microbiology - Last 24 Hours (Table) 03/18/19 21:40 Blood Culture - Preliminary Blood No Growth after 24 hours 03/18/19 21:40 Blood Culture - Preliminary Blood No Growth after 24 hours Assessment and Plan (1) Abdominal pain Narrative/Plan: Patient doing better. Does not appear short of breath. Vital signs of improved. Await morning labs. Keep nothing by mouth. Continue nasogastric tube suction. Current Visit: Yes Status: Acute Code(s): R10.9 - UNSPECIFIED ABDOMINAL PAIN SNOMED Code(s): 46019945 (2) Sigmoid volvulus Current Visit: Yes Status: Acute Code(s): K56.2 - VOLVULUS SNOMED Code(s): 848301400
[2019-03-20 08:33] LABS: Basophils % (A) 0 %; Eosinophils # (A) 0.1 k/uL (0-0.7); Eosinophils % (A) 1 %; HCT 29.3 % (39.0-53.0); HGB 9.3 gm/dL (13.0-17.5); Lymphocytes # (A) 0.9 k/uL (1.0-4.8); Lymphocytes % (A) 10 %; MCH 29.8 pg (25.0-35.0); MCHC 31.8 g/dL (31.0-37.0); MCV 93.7 fL (80.0-100.0); Mean Platelet Volume 7.8; Monocytes # (A) 0.9 k/uL (0-1.0); Monocytes % (A) 10 %; Neutrophils # (A) 7.2 k/uL (1.3-7.7); Neutrophils % (A) 78 %; Platelet Count 204 k/uL (150-450); RBC 3.12 m/uL (4.30-5.90); RDW 14.4 % (11.5-15.5); WBC 9.2 k/uL (3.8-10.6)
[2019-03-20 08:42] LABS: African American GFR (CKD) >90 (>60 ml/min/1.73 sqM); Anion Gap 7 mmol/L; Blood Urea Nitrogen 24 mg/dL (9-20); Calcium 7.2 mg/dL (8.4-10.2); Carbon Dioxide 23 mmol/L (22-30); Chloride 115 mmol/L (98-107); Glucose 90 mg/dL (74-99); Non-African American GFR(CKD) >90 (>60 ml/min/1.73 sqM); Potassium 3.4 mmol/L (3.5-5.1); Sodium 145 mmol/L (137-145)
[2019-03-20] MEDS: PANTOPRAZOLE 40 MG/10 ML VIAL IVP SCH ×2 (10:08→21:09)
--- NOTE | 2019-03-20 13:47 | P.PN ---
Subjective Progress Note Date: 03/20/19 This is a 68-year-old male patient who presented with chronic obstruction. The patient was taken to the operating room for sigmoid volvulus and colonic obstruction. The patient underwent the surgery on 03/16/2019. Surgery involved sigmoid colectomy and end colostomy. The patient was recovering in the medical floor and yesterday the patient became nauseous and had several emesis of coffee-ground material. Subsequently the patient became also hypotensive. His lactic acid level was also on the rise. Based on that the patient a chest to the ICU. He was started on IV fluids. He was already on IV Zosyn that was continued. NG tube was inserted and the patient has drained approximately 500 mL of coffee-ground material into the suction bottle. Hemoglobin is stable and he dropped down to 13.3 initially from a baseline of 15.6 and later on today it is down to 11.5. No packed RBC transfusion was done. The patient was given IV fluids. I ordered an additional 2 L this morning to the patient. The patient has sluggish bowel sounds. There is some stool in the colostomy bag which is brown and nonbloody and non-melanotic. Nevertheless the NG tube is still draining some minimal amount of coffee-ground material. The patient is not receiving any pressors. With fluid resuscitation, the serum lactic acid level dropped down to 3.7. He is awake. Is following commands. His answering ques tions. The patient was seen by general surgery today. The ostomy is functional. They opted to monitor this patient in the ICU keeping the NG tube in place. Noted the patient also had a CT angiogram of the chest that shows some lower lobe infiltrates bilaterally and this could be potentially related to aspiration. The patient however is not having any respiratory distress this morning. No cough. No sputum production. NG tube will be kept in place. Fluid resuscitation is also being continued. White cell count is at 11.4 this morning. On 03/20/2019 the patient is in a MedSurg floor. Doing well. NG tube is in place. Output has dropped and it's not as coffee-ground as blurred used to be earlier. On 8 mL output over the past 8 hours. He has a functioning colostomy. His resting comfortably in bed. No cough. No sputum production. No chest pain. No shortness of breath. No other complaints otherwise for now. He is afebrile. Her white cell count is at 9.2. The rest of the blood work and electrodes are all within normal limits. Objective - Vital Signs Vital signs: Vital Signs Temp 99.0 F 03/20/19 07:14 Pulse 80 03/20/19 11:21 Resp 16 03/20/19 07:14 BP 106/71 03/20/19 07:14 Pulse Ox 98 03/20/19 07:14 Intake & Output 03/19/19 03/20/19 03/20/19 18:59 06:59 18:59 Intake Total 4125 1350 Output Total 1767 80 400 Balance 2358 1270 -400 Weight 104.326 kg Intake: IV 2125 1350 Piperacillin-Tazobactam 3 225 100 .375 gm In Sodium Chloride 0.9% 100 ml @ 25 mls/hr IVPB Q8HR [facility] Rx# :[id number] Sodium Chloride 0.9% 1, 1400 1250 000 ml @ 150 mls/hr IV . Q6H40M [facility] Rx#:[id number] Vancomycin 1,750 mg In 500 Sodium Chloride 0.9% 500 ml 500 ml @ 167 mls/hr IVPB ONCE ONE Rx#: [id number] Intake, IV Titration 2000 Amount Sodium Chloride 0.9% 1, 1000 000 ml @ 999 mls/hr IV . Q1H1M [facility] Rx#:[id number] Sodium Chloride 0.9% 1, 1000 000 ml @ 999 mls/hr IV . Q1H1M [facility] Rx#:[id number] Output: Gastric Drainage 1325 80 Urine 392 Stool 50 400 Other: Voiding Method Indwelling Catheter Indwelling Catheter Indwelling Catheter - Exam Gen. appearance is calm and comfortable lying acute distress NG tube is in place Head exam was generally normal. There was no scleral icterus or corneal arcus. Mucous membranes were moist. Neck was supple and without jugular venous distension, thyromegaly, or carotid bruits. Carotids were easily palpable bilaterally. There was no adenopathy. Oral examination shows multiple missing teeth and poor dental condition Lung sounds are diminished bilaterally in the lung bases along with some bibasilar crackles. Cardiac exam revealed the PMI to be normally situated and sized. The rhythm was regular and no extrasystoles were noted during several minutes of auscultation. The first and second heart sounds were normal and physiologic splitting of the second heart sound was noted. There were no murmurs, rubs, clicks, or gallops. Abdomen is soft and nondistended. The ostomy is functional and viable. No direct tenderness amount a guarding. Bowel sounds are hypoactive. Examination of the skin revealed no evidence of significant rashes, suspicious appearing nevi or other concerning lesions. Neurologically the patient is alert and awake. Cranial nerves are grossly intact. The patient has a right-sided weakness related to previous CVA. Gait cannot be assessed as the patient is wheelchair-bound/bedbound and he is nonambulatory at baseline. - Labs CBC & Chem 7: 03/20/19 07:38 03/20/19 07:38 Labs: Abnormal Lab Results - Last 24 Hours (Table) 03/19/19 03/20/19 03/20/19 Range/Units 17:38 00:14 07:38 WBC 11.0 H (3.8-10.6) k/uL RBC 3.33 L 3.11 L 3.12 L (4.30-5.90) m/uL Hgb 10.2 L 9.6 L 9.3 L (13.0-17.5) gm/dL Hct 31.9 L 29.5 L 29.3 L (39.0-53.0) % Lymphocytes # 0.9 L (1.0-4.8) k/uL Potassium (3.5-5.1) mmol/L Chloride (98-107) mmol/L BUN (9-20) mg/dL Calcium (8.4-10.2) mg/dL 03/20/19 Range/Units 07:38 WBC (3.8-10.6) k/uL RBC (4.30-5.90) m/uL Hgb (13.0-17.5) gm/dL Hct (39.0-53.0) % Lymphocytes # (1.0-4.8) k/uL Potassium 3.4 L (3.5-5.1) mmol/L Chloride 115 H (98-107) mmol/L BUN 24 H (9-20) mg/dL Calcium 7.2 L (8.4-10.2) mg/dL Microbiology - Last 24 Hours (Table) 03/18/19 21:40 Blood Culture - Preliminary Blood No Growth after 24 hours 03/18/19 21:40 Blood Culture - Preliminary Blood No Growth after 24 hours Assessment and Plan Plan: 1 sigmoid volvulus and the patient is post sigmoid colectomy and end colostomy and the patient is postop day #4 2 upper GI bleed as the patient has some coffee-ground material collecting an NG tube with some drop in hemoglobin yet the patient is hemodynamically stable was resuscitated. The patient still has his NG tube in place. Hemoglobin stable at 9.3 compared to yesterday. Upper GI bleed has subsided. 3 lactic acidosis secondary to above, improving 4 hypotension secondary to above improved with fluid resuscitation and the patient is hemodynamically stable on no pressors at this point in time 5 CVA with right-sided weakness 6 seizure disorder 7 bipolar disorder 8 hypertension 9 the patient is bedridden secondary to previous history of CVA 10 bibasilar pulmonary infiltrates, suspect aspiration/pneumonia currently on IV Zosyn Plan Monitor hemoglobin. Keep NG tube in place. Continue IV Zosyn. General surgeries on the case. No signs of acute bleed. Follow. Encourage use of incentive spirometer. Heparin subcu for DVT prophylaxis.
[2019-03-20] MEDS: FUROSEMIDE 20 MG TAB PO SCH (15:00)
[2019-03-20] MEDS ORDERED: Potassium Replacement Protocol 1 EACH MISC MISCELLANE PRN (15:20)
--- NOTE | 2019-03-20 19:25 | PN ---
PROGRESS NOTE DATE OF SERVICE: 03/20/2019. This 68-year-old gentleman admitted after surgery for sigmoid volvulus had issues with significant NG drainage. The patient was monitored in the ICU yesterday. Today the patient, the lungs are much better. Ejection fraction and the 2D echo showed ejection fraction 60-65 percent. Medications are going to be started/crushed through the NG tube at this time. No chest pain. No palpitation. PHYSICAL EXAM: Alert and oriented x2. Pulse 86. Blood pressure 112/69. Respirations 13, temperature 99.4, pulse ox 97% on 2 L. HEENT: Conjunctivae normal. Oral mucosa moist. NECK is no jugular venous distention. No carotid bruit. No lymph node enlargement. CARDIOVASCULAR SYSTEM: S1, S2 muffled. RESPIRATIONS: Breath sounds diminished in the bases. A few scattered rhonchi. No crackles. ABDOMEN: Soft, status post surgery. LEGS: No edema. No swelling. LYMPHATICS: No lymph nodes palpable in the neck, axillae or groin. CENTRAL NERVOUS SYSTEM: No focal deficits. LABS: WBC 9.2, hemoglobin 9.2, Sodium 145. Potassium 3.4. ASSESSMENT: 1. Abdominal pain with bowel obstruction secondary to volvulus, status post sigmoid colectomy and end-colostomy. 2. Hypoxic acute respiratory failure, possibly secondary to atelectasis. 3. Possible aspiration. 4. Coffee-grounds emesis, possible upper gastrointestinal bleeding, stable. 5. Possible aspiration pneumonia. 6. Hypokalemia. 7. Tachycardia, possibly sinus. 8. Chronic obstructive pulmonary disease. 9. History of multiple cerebrovascular accidents. 10.History of seizure disorder. 11.History of bipolar. 12.History of hypertension. 13.Remote history of EtOH. RECOMMENDATIONS AND DISCUSSION: In this 68-year-old gentleman who presented with multiple medical problems, at this time, I recommend continue the current medications, continue symptomatic treatment, management and continue with broad-spectrum IV antibiotics. The patient is empirically started on Zosyn and vancomycin. We will continue to monitor. The cultures are negative so far. DVT prophylaxis. Potassium supplementation. Further recommendations to follow. MMODL / IJN: [id number] /
[2019-03-20] MEDS: PHENYTOIN ORAL SUSP 100 MG/4 ML CUP PO SCH (21:09)
[2019-03-20] MEDS: BACLOFEN 10 MG TAB PO SCH (21:09)
[2019-03-20] MEDS: SERTRALINE 50 MG TAB PO SCH (21:09)
[2019-03-21] MEDS: PIPERACILLIN-TAZOBACTAM 3.375 GM in SODIUM CHLORIDE 0.9% 100 ML IVPB SCH ×3 (01:00→16:41)
[2019-03-21] MEDS: SODIUM CHLORIDE 0.9% 1,000 ML IV SCH ×4 (01:57→21:02)
[2019-03-21] MEDS: VANCOMYCIN 1,750 MG in SODIUM CHLORIDE 0.9% 500 ML 500 ML IVPB SCH ×2 (04:06→19:12)
[2019-03-21] MEDS: TAMSULOSIN 0.4 MG CAP.ER.24H PO SCH (04:30)
[2019-03-21] MEDS: FLUTICASONE 50MCG/SPRAY NASAL 16GM EA NOSTRIL SCH (06:00)
[2019-03-21] MEDS: PHENYTOIN ORAL SUSP 100 MG/4 ML CUP PO SCH ×3 (06:00→21:05)
[2019-03-21] MEDS: METOCLOPRAMIDE 5 MG/ML 2 ML VIAL IVP SCH ×3 (06:03→18:06)
[2019-03-21] MEDS: DOXAZOSIN 2 MG TAB PO SCH ×3 (06:05→21:05)
[2019-03-21] MEDS: LISINOPRIL 20 MG TAB PO SCH (06:05)
[2019-03-21] MEDS: ARIPiprazole 15 MG TAB PO SCH (06:06)
[2019-03-21] MEDS: IPRATROPIUM-ALBUTEROL 3 ML NEB INHALATION SCH ×4 (07:30→19:13)
[2019-03-21] MEDS: PANTOPRAZOLE 40 MG/10 ML VIAL IVP SCH ×2 (08:48→21:05)
[2019-03-21] MEDS: HEPARIN SODIUM,PORCINE 5,000 UNIT/ML 1 ML VIAL SQ SCH ×2 (08:48→16:41)
[2019-03-21] MEDS ORDERED: SODIUM CHLORIDE 0.9% 500 ML 500 ML IV ONE (09:03)
[2019-03-21 12:16] LABS: African American GFR (CKD) >90 (>60 ml/min/1.73 sqM); Anion Gap 7 mmol/L; Blood Urea Nitrogen 16 mg/dL (9-20); Calcium 7.2 mg/dL (8.4-10.2); Carbon Dioxide 20 mmol/L (22-30); Chloride 119 mmol/L (98-107); Glucose 76 mg/dL (74-99); Magnesium 1.9 mg/dL (1.6-2.3); Non-African American GFR(CKD) >90 (>60 ml/min/1.73 sqM); Sodium 146 mmol/L (137-145)
--- NOTE | 2019-03-21 12:28 | P.PN ---
Subjective Progress Note Date: 03/21/19 CHIEF COMPLAINT: obstruction HISTORY OF PRESENT ILLNESS: Patient is status post sigmoid colectomy with end colostomy secondary to sigmoid volvulus. Patient examined at the bedside. Denies abdominal pain. Ostomy with large amount of brown liquid stool. Patient with NG to LIS with small amount of bilious drainage. Denies nausea. Hester with herbert urine. Potassium 3.0. PHYSICAL EXAM: VITAL SIGNS: Reviewed GENERAL: Well-developed in no acute distress. HEENT: NG to LIS. No sclera icterus. Extraocular movements grossly intact. Moist buccal mucosa. Head is atraumatic, normocephalic. Hears conversational speech. No nasal drainage. NECK: Supple without lymphadenopathy. CHEST: Non-labored respirations and equal bilateral excursions. CARDIOVASCULAR: Regular rate with regular rhythm. Palpable 2+ radial pulses. ABDOMEN: Soft. Nondistended. Nontender. Dressing to midline with shadowing present. Ostomy with large amount of brown stool. MUSCULOSKELETAL: No clubbing, cyanosis or edema. History of CVA with residual deficits. Wheelchair bound at baseline. NEUROLOGIC: No focal or lateralizing signs. PSYCH: Appropriate affect. Alert and oriented to person, place and time. SKIN: Well perfused. Good skin turgor. ASSESSMENT: 1. Sigmoid volvulus, s/p status post sigmoid colectomy with end colostomy PLAN: 1. Clamp NPO tube 2. If patient tolerates NG clamped for this morning, likely DC NG and will trial clear liquids this afternoon 3. 500cc bolus x 1 4. Continue antibiotics. Pulmonary following 5. Replace potassium Nurse practitioner note has been reviewed by physician. Signing provider agrees with the documented findings, assessment, and plan of care. Objective - Vital Signs Vital signs: Vital Signs Temp 98.0 F 03/21/19 08:27 Pulse 86 03/21/19 11:48 Resp 16 03/21/19 08:27 BP 121/75 03/21/19 08:27 Pulse Ox 95 03/21/19 08:27 Intake & Output 03/20/19 03/21/19 03/21/19 18:59 06:59 18:59 Output Total 900 910 400 Balance -900 -910 -400 Output: Gastric Drainage 70 Urine 840 Uretheral (Hester) 440 Stool 900 400 Other: Voiding Method Indwelling Catheter Indwelling Catheter Indwelling Catheter - Labs CBC & Chem 7: 03/20/19 07:38 03/21/19 11:28 Labs: Abnormal Lab Results - Last 24 Hours (Table) 03/21/19 Range/Units 11:28 Sodium 146 H (137-145) mmol/L Potassium 3.0 L (3.5-5.1) mmol/L Chloride 119 H (98-107) mmol/L Carbon Dioxide 20 L (22-30) mmol/L Creatinine 0.54 L (0.66-1.25) mg/dL Calcium 7.2 L (8.4-10.2) mg/dL Microbiology - Last 24 Hours (Table) 03/18/19 21:40 Blood Culture - Preliminary Blood No Growth after 48 hours 03/18/19 21:40 Blood Culture - Preliminary Blood No Growth after 48 hours
[2019-03-21] MEDS ORDERED: MAGNESIUM SULFATE-D5W PMX 1 GM in DEXTROSE/WATER 1 100ML.BAG IVPB ONE (12:30)
[2019-03-21 12:33] LABS: Basophils % (A) 0 %; Eosinophils # (A) 0.1 k/uL (0-0.7); Eosinophils % (A) 2 %; HCT 27.3 % (39.0-53.0); HGB 8.2 gm/dL (13.0-17.5); Hypochromasia Marked; Lymphocytes # (A) 0.8 k/uL (1.0-4.8); Lymphocytes % (A) 11 %; MCH 29.4 pg (25.0-35.0); MCHC 30.2 g/dL (31.0-37.0); MCV 97.6 fL (80.0-100.0); Mean Platelet Volume 7.7; Monocytes # (A) 0.4 k/uL (0-1.0); Monocytes % (A) 6 %; Neutrophils # (A) 5.8 k/uL (1.3-7.7); Neutrophils % (A) 79 %; Platelet Count 226 k/uL (150-450); RDW 14.4 % (11.5-15.5); WBC 7.3 k/uL (3.8-10.6)
[2019-03-21] MEDS: POTASSIUM CHLORIDE ER 20 MEQ TAB.ER PO SCH ×4 (12:36→18:06)
[2019-03-21] MEDS: FUROSEMIDE 20 MG TAB PO SCH (12:36)
--- NOTE | 2019-03-21 13:43 | P.PN ---
Subjective Progress Note Date: 03/21/19 Principal diagnosis: Sigmoid volvulus status post sigmoid colectomy and end colostomy This is a 68-year-old male patient who presented with chronic obstruction. The patient was taken to the operating room for sigmoid volvulus and colonic obstruction. The patient underwent the surgery on 03/16/2019. Surgery involved sigmoid colectomy and end colostomy. The patient was recovering in the medical floor and yesterday the patient became nauseous and had several emesis of coffee -ground material. Subsequently the patient became also hypotensive. His lactic acid level was also on the rise. Based on that the patient a chest to the ICU. He was started on IV fluids. He was already on IV Zosyn that was continued. NG tube was inserted and the patient has drained approximately 500 mL of coffee- ground material into the suction bottle. Hemoglobin is stable and he dropped do wn to 13.3 initially from a baseline of 15.6 and later on today it is down to 11.5. No packed RBC transfusion was done. The patient was given IV fluids. I ordered an additional 2 L this morning to the patient. The patient has sluggish bowel sounds. There is some stool in the colostomy bag which is brown and nonbloody and non-melanotic. Nevertheless the NG tube is still draining some minimal amount of coffee-ground material. The patient is not receiving any pressors. With fluid resuscitation, the serum lactic acid level dropped down to 3.7. He is awake. Is following commands. His answering questions. The patient was seen by general surgery today. The ostomy is functional. They o pted to monitor this patient in the ICU keeping the NG tube in place. Noted the patient also had a CT angiogram of the chest that shows some lower lobe infiltrates bilaterally and this could be potentially related to aspiration. The patient however is not having any respiratory distress this morning. No cough. No sputum production. NG tube will be kept in place. Fluid resuscitation is also being continued. White cell count is at 11.4 this morning. On 03/20/2019 the patient is in a MedSur floor. Doing well. NG tube is in place. Output has dropped and it's not as coffee-ground as blurred used to be earlier. On 8 mL output over the past 8 hours. He has a functioning colostomy. His resting comfortably in bed. No cough. No sputum production. No chest pain. No shortness of breath. No other complaints otherwise for now. He is afebrile. Her white cell count is at 9.2. The rest of the blood work and electrodes are all within normal limits. On 03/21/2019 patient seen in follow-up on medical surgical floor. He is resting in bed, in no acute distress, currently on 2 L of oxygen and the pulse ox of 96%, afebrile, hemodynamically stable, abdomen is soft, bowel sounds are present, colostomy for nursing staff is putting out a large amount of pasty- looking stool, with no obvious signs of bleeding, today's hemoglobin is 8.2, white blood cell count of 7.3, platelet count is 226, sodium is 146, potassium is 3.0, chloride is 119, CO2 is 20, BUN is 16, creatinine 0.54, he remains nothing by mouth, NG tube is in place to low intermittent suction, and there has been minimal amount of gastric drainage from the NG tube over the last 24 hours. Patient is making good urine. He is in -1810 mL fluid balance over the last 24 hours. He is getting IV fluid bolus and his maintenance IV fluids infusing at a rate of 100 ML per hour. No fever or chills, no compressive chest pain or shortness of breath. His last chest x-ray was on 03/19/2019 showing hypoventilatory lungs, and bibasilar atelectasis. Blood cultures have shown no growth so far, patient is on Zosyn and vancomycin for antibiotic coverage. Objective - Vital Signs Vital signs: Vital Signs Temp 98.0 F 03/21/19 08:27 Pulse 85 03/21/19 12:39 Resp 16 03/21/19 08:27 BP 123/73 03/21/19 12:39 Pulse Ox 96 03/21/19 12:39 Intake & Output 03/20/19 03/21/19 03/21/19 18:59 06:59 18:59 Output Total 900 910 400 Balance -900 -910 -400 Output: Gastric Drainage 70 Urine 840 Uretheral (Hester) 440 Stool 900 400 Other: Voiding Method Indwelling Catheter Indwelling Catheter Indwelling Catheter - Exam GENERAL EXAM: Alert, pleasant, 68-year-old white male, onto his of oxygen, comfortable in no apparent distress. HEAD: Normocephalic/atraumatic. EYES: Normal reaction of pupils, equal size. Conjunctiva pink, sclera white. NOSE: Clear with pink turbinates. NG tube is in place with minimal amount of gastric output THROAT: No erythema or exudates. NECK: No masses, no JVD, no thyroid enlargement, no adenopathy. CHEST: No chest wall deformity. Symmetrical expansion. LUNGS: Equal air entry with no crackles, wheeze, rhonchi or dullness. CVS: Regular rate and rhythm, normal S1 and S2, no gallops, no murmurs, no rubs ABDOMEN: Soft, nontender. No hepatosplenomegaly, normal bowel sounds, no guarding or rigidity. Left abdominal colostomy with the urge amount of pasty brown stool EXTREMITIES: No clubbing, no edema, no cyanosis, 2+ pulses and upper and lower extremities. MUSCULOSKELETAL: Muscle strength and tone normal. SPINE: No scoliosis or deformity SKIN: No rashes CENTRAL NERVOUS SYSTEM: Alert and oriented -3. No focal deficits, tone is normal in all 4 extremities. PSYCHIATRIC: Alert and oriented -3. Appropriate affect. Intact judgment and insight. - Labs CBC & Chem 7: 03/21/19 11:28 03/21/19 11:28 Labs: Abnormal Lab Results - Last 24 Hours (Table) 03/21/19 03/21/19 Range/Units 11:28 11:28 RBC 2.80 L (4.30-5.90) m/uL Hgb 8.2 L (13.0-17.5) gm/dL Hct 27.3 L (39.0-53.0) % MCHC 30.2 L (31.0-37.0) g/dL Lymphocytes # 0.8 L (1.0-4.8) k/uL Sodium 146 H (137-145) mmol/L Potassium 3.0 L (3.5-5.1) mmol/L Chloride 119 H (98-107) mmol/L Carbon Dioxide 20 L (22-30) mmol/L Creatinine 0.54 L (0.66-1.25) mg/dL Calcium 7.2 L (8.4-10.2) mg/dL Microbiology - Last 24 Hours (Table) 03/18/19 21:40 Blood Culture - Preliminary Blood No Growth after 48 hours 03/18/19 21:40 Blood Culture - Preliminary Blood No Growth after 48 hours Assessment and Plan Plan: Assessment: 1 sigmoid volvulus and the patient is post sigmoid colectomy and end colostomy and the patient is postop day #4 2 upper GI bleed as the patient has some coffee-ground material collecting an NG tube with some drop in hemoglobin yet the patient is hemodynamically stable was resuscitated. The patient still has his NG tube in place. Hemoglobin stable at 9.3 compared to yesterday. Upper GI bleed has subsided. 3 lactic acidosis secondary to above, improving 4 hypotension secondary to above improved with fluid resuscitation and the patient is hemodynamically stable on no pressors at this point in time 5 CVA with right-sided weakness 6 seizure disorder 7 bipolar disorder 8 hypertension 9 the patient is bedridden secondary to previous history of CVA 10 bibasilar pulmonary infiltrates, suspect aspiration/pneumonia currently on IV Zosyn Plan: Encourage deep breathing and coughing, incentive spirometry use, continue with nebulized bronchodilators, continue with empiric antibiotics, patient is afebrile, no worsening dyspnea, we'll obtain follow-up chest x-ray today. He is maintaining good oxygenation on 2 L of oxygen. No signs of ongoing GI bleeding. His ostomy is putting out large amount of pasty-looking stool, patient is getting IV fluid bolus, would hold Lasix for now. I performed a history & physical examination of the patient and discussed their management with my nurse practitioner, Anita Zeng. I reviewed the nurse practitioner's note and agree with the documented findings and plan of care. Lung sounds are positive for diminished breath sounds. The findings and the impression was discussed with the patient. I attest to the documentation by the nurse practitioner. Time with Patient: Less than 30
[2019-03-21] MEDS ORDERED: VANCOMYCIN TROUGH DUE 1 EACH MISC MISCELLANE ONE (15:00)
--- NOTE | 2019-03-21 16:37 | XR ---
EXAMINATION TYPE: XR chest 1V portable DATE OF EXAM: 03/21/2019 COMPARISON: 03/19/2019 HISTORY: Pneumonia. Short of breath TECHNIQUE: Single frontal view of the chest is obtained. FINDINGS: There is poor inspiration and atelectasis at both lung bases. There is no gross heart fail ure. Heart is probably enlarged. There are chest leads. IMPRESSION: Bilateral basilar infiltrates and atelectasis not significantly different than last exam . No heart failure. Pleural fluid is possible.
--- NOTE | 2019-03-21 16:49 | P.PN ---
Subjective Progress Note Date: 03/21/19 Principal diagnosis: This is a 68-year-old male who was admitted after surgery for sigmoid volvulus and was having significant NG tube drainage with coffee-ground emesis. Patient was in the ICU but has moved to the [facility] unit and is being closely monitored. Pulmonary and surgery are following the patient. Patient was not having any coffee-ground emesis output today and was hemodynamically stable. Patient's NG tube was removed today and is currently on clear liquids and tolerating well. Patient denies any abdominal discomfort. Patient's colostomy is outputting a large amounts of brown stools. Patient does have an indwelling Hester catheter which shows clear yellow urine output. Intake and output is being closely monitored. Patient surgical site of the abdomen is dry and intact with no new shadowing noted on the dressing. We'll continue to monitor closely. Patient denies any chest pain, shortness of breath, or palpitations at this time. Patient is afebrile. Objective - Vital Signs Vital signs: Vital Signs Temp 98.4 F 03/21/19 14:56 Pulse 81 03/21/19 15:37 Resp 16 03/21/19 14:56 BP 143/79 03/21/19 14:56 Pulse Ox 96 03/21/19 14:56 Intake & Output 03/20/19 03/21/19 03/21/19 18:59 06:59 18:59 Output Total 900 910 400 Balance -900 -910 -400 Output: Gastric Drainage 70 Urine 840 Uretheral (Hester) 440 Stool 900 400 Other: Voiding Method Indwelling Catheter Indwelling Catheter Indwelling Catheter - Exam Gen: This is a 68-year-old male sitting up in bed in no acute distress. Vital signs are stable. Blood pressure is 123/73, pulse is 85, respirations are 16, temp is 98.4F, pulse ox is 96% on 2 L nasal cannula. HEENT: Head is atraumatic, normocephalic. Pupils equal, round. Sclerae is anicteric. NECK: Supple. No JVD. No lymphadenopathy. No thyromegaly. LUNGS: Breath sounds diminished in the bases. No wheezes with a few scattered rhonchi. No intercostal retractions. HEART: Regular rate and rhythm. No murmur. ABDOMEN: Soft. Bowel sounds are present. No masses. No tenderness. Mid abdominal surgical dressing is dry and intact with no new shadowing present. EXTREMITIES: No pedal edema. No calf tenderness. NEUROLOGICAL: Patient is awake, alert and oriented x3. Cranial nerves 2 through 12 are grossly intact. - Labs CBC & Chem 7: 03/21/19 11:28 03/21/19 11:28 Labs: Abnormal Lab Results - Last 24 Hours (Table) 03/21/19 03/21/19 Range/Units 11:28 11:28 RBC 2.80 L (4.30-5.90) m/uL Hgb 8.2 L (13.0-17.5) gm/dL Hct 27.3 L (39.0-53.0) % MCHC 30.2 L (31.0-37.0) g/dL Lymphocytes # 0.8 L (1.0-4.8) k/uL Sodium 146 H (137-145) mmol/L Potassium 3.0 L (3.5-5.1) mmol/L Chloride 119 H (98-107) mmol/L Carbon Dioxide 20 L (22-30) mmol/L Creatinine 0.54 L (0.66-1.25) mg/dL Calcium 7.2 L (8.4-10.2) mg/dL Microbiology - Last 24 Hours (Table) 03/18/19 21:40 Blood Culture - Preliminary Blood No Growth after 48 hours 03/18/19 21:40 Blood Culture - Preliminary Blood No Growth after 48 hours Assessment and Plan Assessment: Abdominal pain with bowel obstruction secondary to volvulus, status post sigmoid colectomy and end-colostomy Hypoxic acute respiratory failure, possibly secondary to atelectasis Possible aspiration Coffee-ground emesis, possible upper gastrointestinal bleeding, stable Possible aspiration pneumonia Hypokalemia Tachycardia, possibly sinus Chronic obstructive pulmonary disease History of multiple cerebrovascular accidents History of seizure disorder History of bipolar History of hypertension Remote history of EtOH Recommendations and discussion At this time it is recommended to continue current medications, continue symptomatic treatments, and medical management. Patient will continue with broad-spectrum IV antibiotics empirically. We will continue to monitor. Cultures remain negative thus far. Further recommendations to follow. We'll continue to monitor labs and vital signs closely. PT/OT are following.
[2019-03-21] MEDS: BACLOFEN 10 MG TAB PO SCH (21:05)
[2019-03-21] MEDS: SERTRALINE 50 MG TAB PO SCH (21:05)
[2019-03-22] MEDS: METOCLOPRAMIDE 5 MG/ML 2 ML VIAL IVP SCH ×2 (01:09→05:35)
[2019-03-22] MEDS: PIPERACILLIN-TAZOBACTAM 3.375 GM in SODIUM CHLORIDE 0.9% 100 ML IVPB SCH ×3 (01:09→15:58)
[2019-03-22] MEDS: HEPARIN SODIUM,PORCINE 5,000 UNIT/ML 1 ML VIAL SQ SCH ×3 (01:09→15:58)
[2019-03-22] MEDS: VANCOMYCIN 1,750 MG in SODIUM CHLORIDE 0.9% 500 ML 500 ML IVPB SCH (04:53)
[2019-03-22] MEDS: LISINOPRIL 20 MG TAB PO SCH (05:31)
[2019-03-22] MEDS: ARIPiprazole 15 MG TAB PO SCH (05:31)
[2019-03-22] MEDS: FLUTICASONE 50MCG/SPRAY NASAL 16GM EA NOSTRIL SCH (05:31)
[2019-03-22] MEDS: TAMSULOSIN 0.4 MG CAP.ER.24H PO SCH (05:31)
[2019-03-22] MEDS: DOXAZOSIN 2 MG TAB PO SCH ×3 (05:31→21:34)
[2019-03-22] MEDS: PHENYTOIN ORAL SUSP 100 MG/4 ML CUP PO SCH ×3 (05:33→21:34)
[2019-03-22] MEDS ORDERED: Potassium Replacement Protocol 1 EACH MISC MISCELLANE PRN (07:00)
[2019-03-22] MEDS: SODIUM CHLORIDE 0.9% 1,000 ML IV SCH (07:12)
[2019-03-22] MEDS: POTASSIUM CHLORIDE ER 20 MEQ TAB.ER PO SCH ×5 (07:25→14:20)
[2019-03-22 08:52] LABS: ALT 56 U/L (21-72); AST 63 U/L (17-59); African American GFR (CKD) >90 (>60 ml/min/1.73 sqM); Albumin 2.2 g/dL (3.5-5.0); Alkaline Phosphatase 99 U/L (38-126); Anion Gap 7 mmol/L; Blood Urea Nitrogen 10 mg/dL (9-20); Calcium 6.9 mg/dL (8.4-10.2); Carbon Dioxide 22 mmol/L (22-30); Chloride 112 mmol/L (98-107); Glucose 83 mg/dL (74-99); Magnesium 1.9 mg/dL (1.6-2.3); Non-African American GFR(CKD) >90 (>60 ml/min/1.73 sqM); Potassium 2.9 mmol/L (3.5-5.1); Sodium 141 mmol/L (137-145); Total Bilirubin 0.3 mg/dL (0.2-1.3); Total Protein 4.3 g/dL (6.3-8.2)
[2019-03-22 09:00] LABS: Basophils % (A) 0 %; Eosinophils # (A) 0.2 k/uL (0-0.7); Eosinophils % (A) 3 %; HCT 28.2 % (39.0-53.0); Hypochromasia Slight; Lymphocytes # (A) 0.9 k/uL (1.0-4.8); Lymphocytes % (A) 12 %; MCH 30.5 pg (25.0-35.0); MCHC 31.8 g/dL (31.0-37.0); MCV 95.8 fL (80.0-100.0); Mean Platelet Volume 8.2; Monocytes # (A) 0.7 k/uL (0-1.0); Monocytes % (A) 9 %; Neutrophils # (A) 5.5 k/uL (1.3-7.7); Neutrophils % (A) 74 %; Platelet Count 269 k/uL (150-450); Poikilocytosis Slight; RBC 2.94 m/uL (4.30-5.90); RDW 15.3 % (11.5-15.5); WBC 7.5 k/uL (3.8-10.6)
[2019-03-22] MEDS: IPRATROPIUM-ALBUTEROL 3 ML NEB INHALATION SCH ×4 (09:09→19:32)
[2019-03-22] MEDS: PANTOPRAZOLE 40 MG/10 ML VIAL IVP SCH ×2 (09:23→21:34)
--- NOTE | 2019-03-22 11:43 | P.PN ---
Subjective Progress Note Date: 03/22/19 CHIEF COMPLAINT: obstruction HISTORY OF PRESENT ILLNESS: Patient is status post sigmoid colectomy with end colostomy secondary to sigmoid volvulus. Patient examined at the bedside. Denies abdominal pain. Ostomy with large amount of brown liquid stool. NG tube dis continued yesterday. Patient has been tolerating clear liquid diet. No episodes of nausea or vomiting. PHYSICAL EXAM: VITAL SIGNS: Reviewed GENERAL: Well-developed in no acute distress. HEENT: NG to LIS. No sclera icterus. Extraocular movements grossly intact. Moist buccal mucosa. Head is atraumatic, normocephalic. Hears conversational speech. No nasal drainage. NECK: Supple without lymphadenopathy. CHEST: Non-labored respirations and equal bilateral excursions. CARDIOVASCULAR: Regular rate with regular rhythm. Palpable 2+ radial pulses. ABDOMEN: Soft. Nondistended. Nontender. Dressing to midline with shadowing present. Ostomy with large amount of brown stool. MUSCULOSKELETAL: No clubbing, cyanosis or edema. History of CVA with residual deficits. Wheelchair bound at baseline. NEUROLOGIC: No focal or lateralizing signs. PSYCH: Appropriate affect. Alert and oriented to person, place and time. SKIN: Well perfused. Good skin turgor. ASSESSMENT: 1. Sigmoid volvulus, s/p status post sigmoid colectomy with end colostomy 2. Hypokalemia PLAN: 1. Advance diet to full liquid 2. Replace potassium 100meq today 3. Replace magnesium 4. Recheck labs at 1800 5. Discontinue Reglan Nurse practitioner note has been reviewed by physician. Signing provider agrees with the documented findings, assessment, and plan of care. Objective - Vital Signs Vital signs: Vital Signs Temp 98.4 F 03/22/19 08:53 Pulse 84 03/22/19 09:20 Resp 16 03/22/19 08:53 BP 169/78 03/22/19 08:53 Pulse Ox 93 L 03/22/19 08:53 Intake & Output 03/21/19 03/22/19 03/22/19 18:59 06:59 18:59 Output Total 400 Balance -400 Output: Stool 400 Other: Voiding Method Indwelling Catheter Indwelling Catheter Indwelling Catheter - Labs CBC & Chem 7: 03/22/19 07:22 03/22/19 07:22 Labs: Abnormal Lab Results - Last 24 Hours (Table) 03/21/19 03/21/19 03/21/19 Range/Units 11:28 11:28 19:35 RBC 2.80 L (4.30-5.90) m/uL Hgb 8.2 L (13.0-17.5) gm/dL Hct 27.3 L (39.0-53.0) % MCHC 30.2 L (31.0-37.0) g/dL Lymphocytes # 0.8 L (1.0-4.8) k/uL Sodium 146 H (137-145) mmol/L Potassium 3.0 L 2.8 L (3.5-5.1) mmol/L Chloride 119 H (98-107) mmol/L Carbon Dioxide 20 L (22-30) mmol/L Creatinine 0.54 L (0.66-1.25) mg/dL Calcium 7.2 L (8.4-10.2) mg/dL AST (17-59) U/L Total Protein (6.3-8.2) g/dL Albumin (3.5-5.0) g/dL 03/22/19 03/22/19 Range/Units 07:22 07:22 RBC 2.94 L (4.30-5.90) m/uL Hgb 9.0 L (13.0-17.5) gm/dL Hct 28.2 L (39.0-53.0) % MCHC (31.0-37.0) g/dL Lymphocytes # 0.9 L (1.0-4.8) k/uL Sodium (137-145) mmol/L Potassium 2.9 L (3.5-5.1) mmol/L Chloride 112 H (98-107) mmol/L Carbon Dioxide (22-30) mmol/L Creatinine 0.52 L (0.66-1.25) mg/dL Calcium 6.9 L (8.4-10.2) mg/dL AST 63 H (17-59) U/L Total Protein 4.3 L (6.3-8.2) g/dL Albumin 2.2 L (3.5-5.0) g/dL Microbiology - Last 24 Hours (Table) 03/18/19 21:40 Blood Culture - Preliminary Blood No Growth after 72 hours 03/18/19 21:40 Blood Culture - Preliminary Blood No Growth after 72 hours
[2019-03-22] MEDS: MAGNESIUM SULFATE-D5W PMX 1 GM in DEXTROSE/WATER 1 100ML.BAG IVPB SCH ×2 (12:42→14:21)
[2019-03-22] MEDS: 0.9% NACL WITH KCL 20 MEQ/L 1,000 ML IV SCH ×2 (14:41→21:36)
--- NOTE | 2019-03-22 16:05 | P.PN ---
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 Patient was in the ICU but has moved to the [facility] unit and is being closely monitored. Pulmonary and surgery are following the patient. Patient was not having any coffee-ground emesis output today and was hemodynamically stable. Patient's NG tube was removed today and is currently on clear liquids and tolerating well. Patient denies any abdominal discomfort. Patient's colostomy is outputting a large amounts of brown stools. Patient does have an indwelling Hester catheter which shows clear yellow urine output. Intake and output is being closely monitored. Patient surgical site of the abdomen is dry and intact with no new shadowing noted on the dressing. We'll continue to monitor closely. Patient denies any chest pain, shortness of breath, or palpitations at this time. Patient is afebrile. 03/22/2019 Patient is sitting up in bed resting but easily arousable and appears to be in no acute distress. Patient is tolerating a clear liquid diet and will be advanced to full liquids today per surgery. Still showing an active amount of brown pasty stool in his colostomy bag. Patient is being followed closely with surgery. Patient's potassium today was 2.9 and currently being replaced. Will await repeat labs. Patient denies any chest pain, shortness of breath, or palpitations at this time. Patient denies any nausea or vomiting at this time. Patient is afebrile. Guarded prognosis. Will continue to follow. Objective - Vital Signs Vital signs: Vital Signs Temp 98.9 F 03/22/19 15:48 Pulse 86 03/22/19 15:48 Resp 22 03/22/19 15:48 BP 129/72 03/22/19 15:48 Pulse Ox 95 03/22/19 15:48 Intake & Output 03/21/19 03/22/19 03/22/19 18:59 06:59 18:59 Output Total 400 400 Balance -400 -400 Weight 104.326 kg Output: Urine 400 Stool 400 Other: Voiding Method Indwelling Catheter Indwelling Catheter Indwelling Catheter - Exam Gen: This is a 68-year-old male sitting up in bed in no acute distress. Vital signs are stable. Blood pressure is 169/78, pulse is 80, respirations are 16, temp is 98.4F, pulse ox is 93% on room air. HEENT: Head is atraumatic, normocephalic. Pupils equal, round. Sclerae is anicteric. NECK: Supple. No JVD. No lymphadenopathy. No thyromegaly. LUNGS: Breath sounds diminished in the bases. No wheezes with a few scattered rhonchi. No intercostal retractions. HEART: Regular rate and rhythm. No murmur. ABDOMEN: Soft. Bowel sounds are present. No masses. No tenderness. Mid abdominal surgical dressing is dry and intact with no new shadowing present. Brown pasty stool noted in the colostomy EXTREMITIES: No pedal edema. No calf tenderness. NEUROLOGICAL: Patient is awake, alert and oriented x3. Cranial nerves 2 through 12 are grossly intact. - Labs CBC & Chem 7: 03/22/19 07:22 03/22/19 07:22 Labs: Abnormal Lab Results - Last 24 Hours (Table) 03/21/19 03/22/19 03/22/19 Range/Units 19:35 07:22 07:22 RBC 2.94 L (4.30-5.90) m/uL Hgb 9.0 L (13.0-17.5) gm/dL Hct 28.2 L (39.0-53.0) % Lymphocytes # 0.9 L (1.0-4.8) k/uL Potassium 2.8 L 2.9 L (3.5-5.1) mmol/L Chloride 112 H (98-107) mmol/L Creatinine 0.52 L (0.66-1.25) mg/dL Calcium 6.9 L (8.4-10.2) mg/dL AST 63 H (17-59) U/L Total Protein 4.3 L (6.3-8.2) g/dL Albumin 2.2 L (3.5-5.0) g/dL Microbiology - Last 24 Hours (Table) 03/18/19 21:40 Blood Culture - Preliminary Blood No Growth after 72 hours 03/18/19 21:40 Blood Culture - Preliminary Blood No Growth after 72 hours Assessment and Plan Assessment: Abdominal pain with bowel obstruction secondary to volvulus, status post sigmoid colectomy and end-colostomy Hypoxic acute respiratory failure, possibly secondary to atelectasis Possible aspiration Coffee-ground emesis, possible upper gastrointestinal bleeding, stable. No emesis or bleeding at this time. Possible aspiration pneumonia Hypokalemia: Currently replacing with IV potassium Tachycardia, possibly sinus Chronic obstructive pulmonary disease History of multiple cerebrovascular accidents History of seizure disorder History of bipolar History of hypertension Remote history of EtOH Recommendations and discussion At this time it is recommended to continue current medications, continue symptomatic treatments, and medical management. Patient will continue with broad-spectrum IV antibiotics empirically. We will continue to monitor. Cultures remain negative thus far. Further recommendations to follow. We'll continue to monitor labs and vital signs closely. PT/OT are following. Possible discharge in 24-48 hours to [facility].
[2019-03-22] MEDS: VANCOMYCIN 2,000 MG in SODIUM CHLORIDE 0.9% 500 ML 500 ML IVPB SCH (16:40)
[2019-03-22 19:09] LABS: Magnesium 2.3 mg/dL (1.6-2.3); Potassium 3.4 mmol/L (3.5-5.1)
[2019-03-22] MEDS: SERTRALINE 50 MG TAB PO SCH (21:33)
[2019-03-22] MEDS: POTASSIUM CHLORIDE 10 MEQ in WATER FOR INJECTION 1 100ML.BAG IVPB SCH ×4 (21:33→22:03)
[2019-03-22] MEDS: BACLOFEN 10 MG TAB PO SCH (21:34)
[2019-03-23] MEDS: POTASSIUM CHLORIDE 10 MEQ in WATER FOR INJECTION 1 100ML.BAG IVPB SCH ×2 (00:01→06:00)
[2019-03-23] MEDS: PIPERACILLIN-TAZOBACTAM 3.375 GM in SODIUM CHLORIDE 0.9% 100 ML IVPB SCH ×4 (00:05→18:12)
[2019-03-23] MEDS: HEPARIN SODIUM,PORCINE 5,000 UNIT/ML 1 ML VIAL SQ SCH ×3 (00:15→18:17)
[2019-03-23] MEDS: 0.9% NACL WITH KCL 20 MEQ/L 1,000 ML IV SCH ×2 (06:01→08:15)
[2019-03-23] MEDS: DOXAZOSIN 2 MG TAB PO SCH ×2 (06:04→12:12)
[2019-03-23] MEDS: ARIPiprazole 15 MG TAB PO SCH (06:04)
[2019-03-23] MEDS: FLUTICASONE 50MCG/SPRAY NASAL 16GM EA NOSTRIL SCH (06:04)
[2019-03-23] MEDS: LISINOPRIL 20 MG TAB PO SCH (06:04)
[2019-03-23] MEDS: TAMSULOSIN 0.4 MG CAP.ER.24H PO SCH (06:04)
[2019-03-23] MEDS: VANCOMYCIN 2,000 MG in SODIUM CHLORIDE 0.9% 500 ML 500 ML IVPB SCH (06:05)
[2019-03-23] MEDS: PHENYTOIN ORAL SUSP 100 MG/4 ML CUP PO SCH ×2 (06:05→12:12)
[2019-03-23] MEDS: IPRATROPIUM-ALBUTEROL 3 ML NEB INHALATION SCH ×3 (07:54→16:33)
[2019-03-23 07:58] VITALS: BP 139/84; RESP 17; TEMP 98.5
[2019-03-23] MEDS: PANTOPRAZOLE 40 MG/10 ML VIAL IVP SCH (08:12)
[2019-03-23 08:45] LABS: ALT 48 U/L (21-72); AST 37 U/L (17-59); African American GFR (CKD) >90 (>60 ml/min/1.73 sqM); Albumin 2.1 g/dL (3.5-5.0); Alkaline Phosphatase 84 U/L (38-126); Anion Gap 5 mmol/L; Blood Urea Nitrogen 5 mg/dL (9-20); Carbon Dioxide 24 mmol/L (22-30); Chloride 111 mmol/L (98-107); Glucose 86 mg/dL (74-99); Magnesium 2.1 mg/dL (1.6-2.3); Non-African American GFR(CKD) >90 (>60 ml/min/1.73 sqM); Potassium 3.6 mmol/L (3.5-5.1); Sodium 140 mmol/L (137-145); Total Bilirubin 0.3 mg/dL (0.2-1.3); Total Protein 4.2 g/dL (6.3-8.2)
[2019-03-23 09:04] LABS: Basophils # (A) 0.1 k/uL (0-0.2); Basophils % (A) 1 %; Eosinophils # (A) 0.2 k/uL (0-0.7); Eosinophils % (A) 3 %; HCT 28.7 % (39.0-53.0); HGB 9.1 gm/dL (13.0-17.5); Hypochromasia Slight; Lymphocytes # (A) 1.1 k/uL (1.0-4.8); Lymphocytes % (A) 14 %; MCH 30.4 pg (25.0-35.0); MCHC 31.7 g/dL (31.0-37.0); MCV 95.9 fL (80.0-100.0); Mean Platelet Volume 7.7; Monocytes # (A) 0.8 k/uL (0-1.0); Monocytes % (A) 10 %; Neutrophils # (A) 5.8 k/uL (1.3-7.7); Neutrophils % (A) 72 %; Platelet Count 325 k/uL (150-450); RBC 2.99 m/uL (4.30-5.90); WBC 8.1 k/uL (3.8-10.6)
[2019-03-23] MEDS ORDERED: POTASSIUM CHLORIDE ER 20 MEQ TAB.ER PO STA ×2 (09:42→11:47)
--- NOTE | 2019-03-23 11:36 | XR ---
EXAMINATION TYPE: XR chest 1V DATE OF EXAM: 03/23/2019 COMPARISON: Prior chest x-ray 03/21/2019 HISTORY: Shortness of breath TECHNIQUE: Single frontal view of the chest is obtained. FINDINGS: Patient is rotated. Right hemidiaphragm is elevated. Bibasilar increased density is noted. There is no pneumothorax. Mediastinal widening may be due to technique, rotation. Heart size also ap pears prominently. There is blunting of the left costophrenic angle. No evident pneumothorax. IMPRESSION: Findings are similar to prior exam. Probable subsegmental atelectatic changes, difficult to exclude pneumonia, basilar effusion.
--- NOTE | 2019-03-23 11:51 | P.PN ---
Subjective Progress Note Date: 03/23/19 CHIEF COMPLAINT: obstruction HISTORY OF PRESENT ILLNESS: Patient is status post sigmoid colectomy with end colostomy secondary to sigmoid volvulus. Patient examined at the bedside. Denies abdominal pain. Ostomy with large amount of brown liquid stool. Patient laith erating full liquid diet. No episodes of nausea or vomiting. PHYSICAL EXAM: VITAL SIGNS: Reviewed GENERAL: Well-developed in no acute distress. HEENT: No sclera icterus. Extraocular movements grossly intact. Moist buccal mucosa. Head is atraumatic, normocephalic. Hears conversational speech. No nasal drainage. NECK: Supple without lymphadenopathy. CHEST: Non-labored respirations and equal bilateral excursions. CARDIOVASCULAR: Regular rate with regular rhythm. Palpable 2+ radial pulses. ABDOMEN: Soft. Nondistended. Nontender. Dressing to midline with shadowing present. Ostomy with large amount of brown stool. MUSCULOSKELETAL: No clubbing, cyanosis or edema. History of CVA with residual deficits. Wheelchair bound at baseline. NEUROLOGIC: No focal or lateralizing signs. PSYCH: Appropriate affect. Alert and oriented to person, place and time. SKIN: Well perfused. Good skin turgor. ASSESSMENT: 1. Sigmoid volvulus, s/p status post sigmoid colectomy with end colostomy 2. Hypokalemia PLAN: 1. Continue full liquid diet. May advance if patient requests. This morning he states he liked the full liquids and did not want it advanced at this time. 2. Replace potassium 40meq today 3. Stable for discharge from a surgical standpoint Nurse practitioner note has been reviewed by physician. Signing provider agrees with the documented findings, assessment, and plan of care. Objective - Vital Signs Vital signs: Vital Signs Temp 98.5 F 03/23/19 07:56 Pulse 88 03/23/19 08:04 Resp 17 03/23/19 07:56 BP 139/84 03/23/19 07:56 Pulse Ox 94 L 03/23/19 07:56 Intake & Output 03/22/19 03/23/19 03/23/19 18:59 06:59 18:59 Output Total 400 1000 Balance -400 -1000 Weight 104.326 kg Output: Urine 400 1000 Other: Voiding Method Indwelling Catheter Indwelling Catheter Indwelling Catheter - Labs CBC & Chem 7: 03/23/19 07:34 03/23/19 07:34 Labs: Abnormal Lab Results - Last 24 Hours (Table) 03/22/19 03/23/19 03/23/19 Range/Units 18:13 07:34 07:34 RBC 2.99 L (4.30-5.90) m/uL Hgb 9.1 L (13.0-17.5) gm/dL Hct 28.7 L (39.0-53.0) % Potassium 3.4 L (3.5-5.1) mmol/L Chloride 111 H (98-107) mmol/L BUN 5 L (9-20) mg/dL Creatinine 0.49 L (0.66-1.25) mg/dL Calcium 7.0 L (8.4-10.2) mg/dL Total Protein 4.2 L (6.3-8.2) g/dL Albumin 2.1 L (3.5-5.0) g/dL Microbiology - Last 24 Hours (Table) 03/18/19 21:40 Blood Culture - Preliminary Blood No Growth after 96 hours 03/18/19 21:40 Blood Culture - Preliminary Blood No Growth after 96 hours
--- NOTE | 2019-03-23 13:03 | P.DS ---
Providers Date of admission: 03/14/19 15:34 Expected date of discharge: 03/23/19 Attending physician: Napoleon Davis Consults: 03/14/19 15:34 Consult Physician Routine Consulting Provider: Thee Martinez Consult Reason/Comments: sbo Do you want consulting provider notified?: Yes 03/19/19 01:37 Consult Physician Routine Consulting Provider: Rita Bal Consult Reason/Comments: transfer to ICU Do you want consulting provider notified?: Already Contacted Primary care physician: Kiran Travis Hospital Course: Final diagnosis Abdominal pain with bowel obstruction secondary to volvulus, status post sigmoid colectomy and end colostomy Hypoxic acute respiratory failure, possibly secondary to atelectasis Possible aspiration Coffee-ground emesis, possible upper gastrointestinal bleeding, stable. No emesis or bleeding at this time. Hemodynamically stable Possible aspiration pneumonia Hypokalemia: Resolved potassium was replaced. Current potassium is 3.6 Tachycardia, possibly sinus Chronic obstructive pulmonary disease History of multiple cerebrovascular accidents History of seizure disorder History of bipolar History of hypertension Remote history of EtOH Discharge disposition This patient is being discharged in a stable condition with guarded prognosis back to [facility]. Will continue on oral antibiotics for 3 days. Patient is to continue using incentive spirometer 10 times per hour while awake. History of present illness This is a 68-year-old male who was admitted after surgery for sigmoid volvulus and had issues with significant NG drainage. NG was discontinued and patient is tolerating full liquids at this time. Will continue to advance diet as tolerated. Colostomy is having liquid to semi-formed brown stools. Patient is tolerating oral medications. Patient denies any abdominal pain, shortness of breath, or chest pain at this time. Patient is afebrile. Patient's potassium was low and replaced with the current potassium being 3.6. Magnesium was 2.1. Patient will be returning to [facility] where he resides. Patient is currently stable at this time with a guarded prognosis. Much improvement. On exam vital signs are stable. Blood pressure is 139/84, pulse is 84, respirations are 17, temp is 98.5F, oxygen saturation is 94%. Cardio S1 and S2 are normal. Respiratory shows diminished breath sounds in the bases with no wh eezing noted. Abdomen is soft and tender with colostomy bag present. Surgical dressing is still dry and intact. Nervous system shows no focal deficits. Patient Condition at Discharge: Good Plan - Discharge Summary Discharge Rx Participant: No New Discharge Prescriptions: New Amoxicillin/Potassium Clav [Augmentin 875-125 Tablet] 1 tab PO BID 2 Days #4 tab Continue Acetaminophen [Tylenol] 500 mg PO Q4-6H PRN PRN Reason: Pain Doxazosin Mesylate 2 mg PO TID@0600,1300,2100 Phenytoin Sodium Extended [Dilantin] 200 mg PO BID@0600,2100 Lisinopril 40 mg PO DAILY@0600 Baclofen [Lioresal] 10 mg PO HS@2099 Tamsulosin HCl [Flomax] 0.4 mg PO DAILY@0600 Aspirin EC [Ecotrin Low Dose] 81 mg PO DAILY@0600 ARIPiprazole [Abilify] 15 mg PO DAILY@0600 Sertraline HCl [Zoloft] 100 mg PO DAILY@2100 Magnesium Hydroxide [Milk of Magnesia] 1,200 mg PO Q48H PRN PRN Reason: Constipation Phenytoin Sodium Extended [Dilantin] 100 mg PO DAILY@1300 cap Na Phos,M-B/Na Phos,Di-Ba [Fleet Adult] 133 ml RECTAL DAILY PRN PRN Reason: Constipation Bisacodyl [Dulcolax] 10 mg PO Q48H PRN PRN Reason: Constipation Bisacodyl 10 mg RECTAL DAILY PRN PRN Reason: Constipation Potassium Chloride ER [K-Dur 10] 20 meq PO BID@0600,1999 ALPRAZolam [Xanax] 0.25 mg PO TID@0600,1300,2100 Sertraline [Zoloft] 50 mg PO DAILY@2100 Omeprazole 20 mg PO DAILY@0600 Furosemide [Lasix] 20 mg PO DAILY@1300 Fluticasone Nasal Dana [Flonase Nasal Dana] 1 spray EA NOSTRIL DAILY@0600 Vitamin B Complex/Folic Acid [B-Complex Tablet] 0.4 mg PO DAILY@0600 Discharge Medication List ARIPiprazole [Abilify] 15 mg PO DAILY@0600 04/30/16 [History] Acetaminophen [Tylenol] 500 mg PO Q4-6H PRN 04/30/16 [History] Aspirin EC [Ecotrin Low Dose] 81 mg PO DAILY@0600 04/30/16 [History] Baclofen [Lioresal] 10 mg PO HS@209904/30/16 [History] Doxazosin Mesylate 2 mg PO TID@0600,1300,209904/30/16 [History] Lisinopril 40 mg PO DAILY@59904/30/16 [History] Magnesium Hydroxide [Milk of Magnesia] 1,200 mg PO Q48H PRN 04/30/16 [History] Phenytoin Sodium Extended [Dilantin] 200 mg PO BID@06,209904/30/16 [History] Sertraline HCl [Zoloft] 100 mg PO DAILY@209904/30/16 [History] Tamsulosin HCl [Flomax] 0.4 mg PO DAILY@59904/30/16 [History] Phenytoin Sodium Extended [Dilantin] 100 mg PO DAILY@1300 cap 05/05/16 [Rx] ALPRAZolam [Xanax] 0.25 mg PO TID@0600,1300,209903/14/19 [History] Bisacodyl 10 mg RECTAL DAILY PRN 03/14/19 [History] Bisacodyl [Dulcolax] 10 mg PO Q48H PRN 03/14/19 [History] Fluticasone Nasal Dana [Flonase Nasal Dana] 1 spray EA NOSTRIL DAILY@59903/14/19 [History] Furosemide [Lasix] 20 mg PO DAILY@129903/14/19 [History] Na Phos,M-B/Na Phos,Di-Ba [Fleet Adult] 133 ml RECTAL DAILY PRN 03/14/19 [History] Omeprazole 20 mg PO DAILY@59903/14/19 [History] Potassium Chloride ER [K-Dur 10] 20 meq PO BID@599,199903/14/19 [History] Sertraline [Zoloft] 50 mg PO DAILY@209903/14/19 [History] Vitamin B Complex/Folic Acid [B-Complex Tablet] 0.4 mg PO DAILY@59903/14/19 [History] Amoxicillin/Potassium Clav [Augmentin 875-125 Tablet] 1 tab PO BID 2 Days #4 tab 03/23/19 [Rx] Follow up Appointment(s)/Referral(s): Kiran Travis MD [Primary Care Provider] - 1-2 days Patient Instructions/Handouts: Colostomy Care (GEN) Care Plan Goals (MU): Patient is returning to [facility] continue full liquid diet and advance as tolerated Continue to use incentive spirometer 10 times per hour while awake Activity as tolerated. Colostomy Care Instructions to Transition of Care: LAst pouching system change: 03.18.2019 [facility] care supplies for transition as follows supplied by the hospital: Convatec cut to fit one piece flat barrier with filter #[id number] (3 from the hosptial) No sting prep pads (10) from the hospital Ostomy powder (one ) bottle
[2019-03-23 16:48] VITALS: PULSE 92
[2019-03-23] MEDS ORDERED: PANTOPRAZOLE 40 MG TABLET PO SCH (17:30)
== END 2019-03-23 19:21 | DRG 329 ==
LOC: EC 14:11 → 4MS4W 15:34 → 4SSUR 03-18 17:36 → 2SICU 03-19 01:29 → 4SSUR 03-19 21:39
PROVIDERS: ADMIT Hospitalist; ATTEND Hospitalist
PROC: 0D1L0Z4 Bypass Transverse Colon to Cutaneous, Open Approach (ICD-10-PCS; 2019-03-16)
PROC: 0DTN0ZZ Resection of Sigmoid Colon, Open Approach (ICD-10-PCS; principal; 2019-03-16 11:20)
DX: K56.2 Volvulus (principal); J69.0 Pneumonitis due to inhalation of food and vomit; J96.01 Acute respiratory failure with hypoxia; E87.2 Acidosis; I69.951 Hemiplegia and hemiparesis following unspecified cerebrovascular disease affecting right dominant side; K92.2 Gastrointestinal hemorrhage, unspecified; R71.0 Precipitous drop in hematocrit; J98.11 Atelectasis; K56.7 Ileus, unspecified; I95.9 Hypotension, unspecified; J44.9 Chronic obstructive pulmonary disease, unspecified; E87.6 Hypokalemia; F31.9 Bipolar disorder, unspecified; G40.909 Epilepsy, unspecified, not intractable, without status epilepticus; I10 Essential (primary) hypertension; N40.0 Benign prostatic hyperplasia without lower urinary tract symptoms; Z74.01 Bed confinement status; Z99.3 Dependence on wheelchair; Z79.82 Long term (current) use of aspirin; Z79.899 Other long term (current) drug therapy
CPT/HCPCS: 71045; 71275; 74018; 74019; 74176; 80048; 80053; 80202; 81001; 83605; 83735; 84132; 84484; 85025; 85027; 85379; 87040; 88307; 93005; 93306; 94640; 96361; 96374; 99285